=== PATIENT | female | born 1955 | race Caucasian/White ===

== ENCOUNTER 2024-01-16 10:38 | Day surgery (SDC) | payer OTHER, SELFPAY ==
[2024-01-11 08:33] VITALS: BMI 42.8
--- OUTSIDE RECORDS SUMMARY | 2024-01-16 10:52 | XMS_ITS | Patient Health Record ---
Author Organization [facility] Address [address] [place] [phone] Care Team Providers Care Personnel Assistant Name Role Phone [facility] Primary Care Provider [phone] Josette Galdamez Unavailable [phone] Allergies Allergen (clinical drug ingredient) Drug/Non Drug Allergy documented on EMR Reaction Allergy Type Onset Date Status honey (uncoded) Unknown Allergy Acti ve morphine Morphine Sulfate Unknown Drug Allergy Active Results Component Value Reference Range Notes 25OH VITAMIN D Reviewed date:03/24/2023 05:16:54 PM Interpretation: Performing Lab:Testing performed or reported by [facility], a Service of [facility], [address] [place] [address] Arturo Granda MD, Building Guard Deputy Sheriff [facility]# [id number] Notes/Report: 25OH VITAMIN D 59.6 (20-50) NG/ML COMPLETE CBC WITH DIFF Reviewed date:03/24/2023 05:16:54 PM Interpretation: Performing Lab:Testing performed or reported by [facility], a Service of [address] [address] Arturo Granda MD, Building Guard Deputy Sheriff CLIA# [id number] Notes/Report: WBC 8.9 (4.0-11.0) K/MM3 RBC 4.04 (4.20-5.40) M/MM3 HGB 9.8 (11.7-15.5) GM/DL HCT 32.2 (35.7-45.8) % MCV 79.7 (80.0-100.0) FL MCH 24.3 (27.0-34.0) PG MCHC 30.4 (33.0-37.0) g/dL PLT 260 (150-460) K/MM3 RDW-SD 47.5 (<47.0) FL MPV 9.2 (9.4-12.4) FL AUTOMATED NRBC 0.0 ABS. NRBC 0.0 NEUT # 5.7 (1.3-7.0) K/MM3 LYMPH # 2.5 (0.8-3.1) K/MM3 MONO# 0.5 (0.4-0.9) K/MM3 EO # 0.1 (0.0-0.4) K/MM3 BASO # 0.0 (0.0-0.1) K/MM3 ABS. IMM GRAN 0.1 NEUT 64.6 (44-76) % LYMPH 27.6 (15-43) % MONOCYTE 6.1 (4.5-10.5) % EO 0.8 (0-6) % BASO 0.3 (0-2) % IMM GRAN 0.6 COMPREHENSIVE METABOLIC PANE L Reviewed date:03/24/2023 05:16:54 PM Interpretation: Performing Lab:Testing performed or reported by [facility], a Service of [facility], [address] [place] [address] Arturo Granda MD, Building Guard Deputy Sheriff [facility]# [id number] Notes/Report: GLUCOSE 198 (70-99) MG/DL BUN 20 (8-23) MG/DL CREATININE 0.8 (0.5-1.0) MG/DL SODIUM 136 (133-145) MMOL/L POTASSIUM 4.3 (3.6-5.2) MMOL/L CHLORIDE 100 (98-107) MMOL/L BICARBONATE 25 (22-29) MMOL/L ANION GAP 11 (4-17) ALBUMIN 4.7 (3.4-4.8) GM/DL CALCIUM 9.8 (8.6-10.5) MG/DL BILIRUBIN,TOTAL <0.2 (0-1.2) MG/DL TOTAL PROTEIN 7.0 (6.2-8.2) GM/DL AG RATIO 2.0 AST 64 (0-32) U/L ALK PHOS 96 (35-104) U/L ALT 45 (0-33) U/L ESTIMATED GFR CREATININE 79 Creatinine based estimated glomerular filtration (eGFR) in adults is calculated using the National Kidney Foundation recommended 2020 CKD-EPI equation. Estimates GFR from serum creatinine, age and sex. PROBNP Reviewed date:03/24/2023 05:16:54 PM Interpretation: Performing Lab:Testing performed or reported by [facility], a Service of [address] [address] Arturo Granda MD, Building Guard Deputy Sheriff [facility]# [id number] Notes/Report: PRO BNP 155 (1-125) PG/ML COMPLETE URINALYSIS Reviewed date:03/24/2023 05:16:54 PM Interpretation: Performing Lab:Testing performed or reported by [facility], [place] [address] Arturo Granda MD, Building Guard Deputy Sheriff [facility]# [id number] Notes/Report: APPEAR/COLOR COLORLESS CLEAR SP. GRAVITY 1.005 (1.002-1.030) URINE PH 6.5 (5.0-8.0) URINE ALBUMIN NEGATIVE (NEG) URINE GLUCOSE 3+ (NEG) URINE KETONES NEGATIVE (NEG) URINE BILIRUBIN NEGATIVE (NEG) URINE HEMOGLOBIN NEGATIVE (NEG) URINE NITRITE NEGATIVE (NEG) URINE LEUKOCYTE NEGATIVE (NEG) UROBILINOGEN NORMAL (NORM) MG/DL URINE WBCs 3 (0-5) /HPF URINE RBCs <1 (0-3) /HPF BACTERIA SLIGHT (NEG) HPF SQUAMOUS EPITH 1 (0-8) /HPF HYALINE CAST 1 (0-2) LPF URINARY MICROALBUMIN Reviewed date:03/24/2023 05:16:54 PM Interpretation: Performing Lab:Testing performed or reported by [facility], a Service of [address] [address] Arturo Granda MD, Building Guard Deputy Sheriff [facility]# [id number] Notes/Report: MICRO-ALBUMIN 35.0 (<20) MG/L The urine microalbumin test is designed to monitor renal function. When screening for Bence Rice proteinuria, urine electrophoresis is recommended. MALB/CREAT RATIO 269.5 (0-20) MG/GM URINE CREAT FOR MICRO ALBUMIN 12.8 ANTI-HEPATITIS C W/RFLX HCV QNT Reviewed date:03/24/2023 05:16:54 PM Interpretation: Performing Lab:Testing performed or reported by [facility], a Service of [facility], [address] [place] [address] Arturo Granda MD, Building Guard Deputy Sheriff [facility]# [id number] Notes/Report: ANTI-HEPATITIS C NEGATIVE (NEG) Reference range: Negative This test was performed on the [employer]alen Arm[employer] Raiser Lockstitch immunoassay system. IRON & TIBC Reviewed date:06/21/2023 05:25:14 AM Interpretation: Performing Lab:Testing performed or reported by [facility], a Service of [facility], [address] [place] [address] Arturo Granda MD, Building Guard Deputy Sheriff [facility]# [id number] Notes/Report: IRON 32 (30-160) MCG/DL UNSATURATED IRON BINDING CAPAC 497 (110-370) MCG/DL EST T. IRON BIND CAPACITY 529 (140-530) MCG/D L % IRON SATURATION 6 (20-55) % Hemoglobin A1C Reviewed date:03/22/2023 05:47:38 PM Interpretation: Performing Lab: Notes/Report: [facility] Lot: [id number] US Bladder Reviewed date:11/10/2023 05:56:15 AM Interpretation: Performing Lab: Notes/Report: US Bladder REASON: Urinary incontinence without sensory awareness. COMPARISON: CT Abdomen and Pelvis 03/23/2021. FINDINGS: Bladder morphology appears normal. No stone, mass, wall thickening or debris. Prevoid volume: 591.8 cc Postvoid volume: 150.8 cc Partially imaged uterus demonstrates possible endometrial thickening. IMPRESSION: Significant postvoid residual urinary bladder volume of 151 cc. Partially imaged uterus demonstrates possible endometrial thickening. Consider correlation for history of postmenopausal bleeding. Pelvic ultrasound may be obtained for further evaluation if clinically warranted. WSN: [id number] Ordering Physician: [facility] Dictated By: Lorena JADE, Minesh Daily [facility] Screening Digital Reviewed date:04/05/2023 06:57:22 PM Interpretation: Performing Lab: Notes/Report: Original Ordering Provider: COLYB GUZMAN MD [facility] PDF Report Reviewed date:11/22/2023 06:18:55 PM Interpretation: Performing Lab:[facility] [place], [address], [place], Phone - [phone], Director - Marquez Notes/Report: Comp. Metabolic Panel (14)-3 Reviewed date:11/22/2023 06:18:55 PM Interpretation: Performing Lab:[facility], [address] [place] [address], Phone - [phone], Director - MDJodry Notes/Report: Glucose 292 70-99 mg/dL BUN 34 8-27 mg/dL Creatinine 1.04 0.57-1.00 mg/dL eGFR 58 >59 mL/min/1.73 BUN/Creatinine Ratio 33 12-28 Sodium 132 134-144 mmol/L Potassium 5.2 3.5-5.2 mmol/L Chloride 96 96-106 mmol/L Carbon Dioxide, Total 19 20-29 mmol/L Calcium 9.4 8.7-10.3 mg/dL Protein, Total 7.4 6.0-8.5 g/dL Albumin 4.5 3.9-4.9 g/dL Globulin, Total 2.9 1.5-4.5 g/dL A/G Ratio 1.6 1.2-2.2 Bilirubin, Total <0.2 0.0-1.2 mg/dL Alkaline Phosphatase 99 44-121 IU/L AST (SGOT) 29 0-40 IU/L ALT (SGPT) 25 0-32 IU/L B-Type Natriuretic Peptide-1 [id number] Reviewed date:11/22/2023 06:18:54 PM Interpretation: Performing Lab:[facility], [address] [place] [address], Phone - [phone], Director - MDJodry Notes/Report: B-Type Natriuretic Peptide 37.3 0.0-100.0 pg/m L Siemens ADVIA Centaur XP methodology Albumin/Creatinine Ratio,Uri ne-[id number] Reviewed date:11/22/2023 06:18:54 PM Interpretation: Performing Lab:[facility] [place], [address] [facility], Phone - [phone], Director - MDJodry Notes/Report: Creatinine, Urine 22.1 Not Estab. mg/dL Albumin, Urine 6.5 Not Estab. ug/mL Alb/Creat Ratio 29 0-29 mg/g creat Normal: 0 - 29 Moderately increased: 30 - 300 Severely increased: >300 Vitamin D, 21-Hwsutye-[id number] Reviewed date:11/22/2023 06:18:54 PM Interpretation: Performing Lab:[facility], [address] [facility], Phone - [phone], Director - Marquez Notes/Report: Vitamin D, 25-Hydroxy 67.4 30.0-100.0 ng/mL Vitamin D deficiency has been defined by the Anderson of Medicine and an Endocrine Society practice guideline as a level of serum 25-OH vitamin D less than 20 ng/mL (1,2). The Endocrine Society went on to further define vitamin D insufficiency as a level between 21 and 29 ng/mL (2). 1. IOM (Anderson of Medicine). 2010. Dietary reference intakes for calcium and D. [place]: The National Academies Press. 2. Odell MF, Jaz NC, Vaishnavi HOOVER, et al. Evaluation, treatment, and prevention of vitamin D deficiency: an Endocrine Society clinical practice guideline. JCEM. 2010; 96(7):1911-30. CBC With Differential/Platel et-[id number] Reviewed date:11/22/2023 06:18:54 PM Interpretation: Performing Lab:[facility] [place], [address] [facility], [place], Phone - [phone], Director - Marquez Notes/Report: WBC 11.4 3.4-10.8 x10E3/uL RBC 4.07 3.77-5.28 x10E6/uL Hemoglobin 12.0 11.1-15.9 g/dL Hematocrit 36.0 34.0-46.6 % MCV 89 79-97 fL MCH 29.5 26.6-33.0 pg MCHC 33.3 31.5-35.7 g/dL RDW 13.0 11.7-15.4 % Platelets 234 150-450 x10E3/uL Neutrophils 75 Not Estab. % Lymphs 20 Not Estab. % Monocytes 5 Not Estab. % Eos 0 Not Estab. % Basos 0 Not Estab. % Neutrophils (Absolute) 8.4 1.4-7.0 x10E3/uL Lymphs (Absolute) 2.3 0.7-3.1 x10E3/uL Monocytes(Absolute) 0.6 0.1-0.9 x10E3/uL Eos (Absolute) 0.1 0.0-0.4 x10E3/uL Baso (Absolute) 0.0 0.0-0.2 x10E3/uL Immature Granulocytes 0 Not Estab. % Immature Grans (Abs) 0.0 0.0-0.1 x10E3/uL Ferritin-[id number] Reviewed date:11/22/2023 06:18:54 PM Interpretation: Performing Lab:[facility], [address] [place] [address], Phone - [phone], Director - Marquez Notes/Report: Ferritin 140 15-150 ng/mL Urinalysis, Complete-[id number] Reviewed date:11/22/2023 06:18:54 PM Interpretation: Performing Lab:[facility] [place], [address] [place] [address], Phone - [phone], Director - Marquez Notes/Report: Specific Hazard 1.009 1.005-1.030 pH 6.0 5.0-7.5 Urine-Color Yellow Yellow Appearance Clear Clear WBC Esterase Negative Negative Protein Negative Negative/Trace Glucose 1+ Negative Ketones Negative Negative Occult Blood Negative Negative Bilirubin Negative Negative Urobilinogen,Semi-Qn 0.2 0.2-1.0 mg/dL Nitrite, Urine Negative Negative Microscopic Examination See below: Micr oscopic was indicated and was performed. WBC None seen 0 - 5 /hpf RBC 0-2 0 - 2 /hpf Epithelial Cells (non renal) None seen 0 - 10 /hpf Casts None seen None seen /lpf Bacteria None seen None seen/Few Iron and TIBC-[id number] Reviewed date:11/22/2023 06:18:54 PM Interpretation: Performing Lab:[facility], [address] [place] [address], Phone - [phone], Director - Marquez Notes/Report: Iron Bind.Cap.(TIBC) 402 250-450 ug/dL UIBC 340 118-369 ug/dL Iron 62 27-139 ug/dL Iron Saturation 15 15-55 % URINARY MICROALBUMIN Reviewed date:06/21/2023 05:25:14 AM Interpretation: Performing Lab:Testing performed or reported by [facility], a Service of [facility], [address] [place] [address] Arturo Granda MD, Building Guard Deputy Sheriff [facility]# [id number] Notes/Report: MICRO-ALBUMIN 25.0 (<20) MG/L The urine microalbumin test is designed to monitor renal function. When screening for Bence Rice proteinuria, urine electrophoresis is recommended. MALB/CREAT RATIO 100.0 (0-20) MG/GM URINE CREAT FOR MICRO ALBUMIN 25.0 RETICULOCYTE COUNT Reviewed date:06/21/2023 05:25:14 AM Interpretation: Performing Lab:Testing performed or reported by [facility], a Service of [address] [address] Arturo Granda MD, Building Guard Deputy Sheriff CLIA# [id number] Notes/Report: RETIC % 2.3 (0.9-2.1) % RETICULOCYTE COUNT, CORRECTED 1.9 (0.9-2.1) % RETICULOCYTE PRODUCTION INDEX 1.9 (1.0-2.0) % PROBNP Reviewed date:06/22/2023 07:31:27 AM Interpretation: Performing Lab:Testing performed or reported by [facility], a Service of [address] [address] Arturo Granda MD, Building Guard Deputy Sheriff CLIA# [id number] Notes/Report: PRO BNP 117 (1-125) PG/ML HEMOGLOBIN A1C Reviewed date:06/21/2023 05:25:14 AM Interpretation: Performing Lab:Testing performed or reported by [facility], a Service of [address] [address] Arturo Granda MD, Building Guard Deputy Sheriff CLIA# [id number] Notes/Report: HEMOGLOBIN A1C 10.0 (4.0-5.6) % MONITORING: In known diabetic patients, hemoglobin A1c targets should be discussed with health care provider. DIAGNOSTIC USE: The [place] Diabetes Association (ADA) and the World Health Organization (WHO) recommend the use of HbA1c to diagnose diabetes using a threshold of 6.5%. Patients who have an HbA1c between 5.7% and 6.4% are considered at increased risk for developing diabetes in the future. CAUTION: Falsely low HbA1c results may be observed in patients with hemolytic anemia, homozygous forms of abnormal hemoglobin (e.g. SS, CC, SC), , recent blood loss or hemoglobin F greater than 7%. Fructosamine may be used as an alternate test in these cases. REFERENCE: ADA: Standards of Medical Care in Diabetes 2020, The Journal of Clinical and Applied Research and Education Volume 43, Supplement 1 FERRITIN Reviewed date:06/21/2023 05:42:22 AM Interpretation: Performing Lab:Testing performed or reported by [facility], a Service of [facility], [address] [place] [address] Arturo Granda MD, Building Guard Deputy Sheriff [facility]# [id number] Notes/Report: FERRITIN 18 (14-283) NG/ML COMPREHENSIVE METABOLIC PANE L Reviewed date:06/21/2023 05:25:14 AM Interpretation: Performing Lab:Testing performed or reported by [facility], a Service of [address] [address] Arturo Granda MD, Building Guard Deputy Sheriff [place]# [id number] Notes/Report: GLUCOSE 192 (70-99) MG/DL BUN 26 (8-23) MG/DL CREATININE 1.0 (0.5-1.0) MG/DL SODIUM 137 (133-145) MMOL/L POTASSIUM 4.7 (3.6-5.2) MMOL/L CHLORIDE 99 (98-107) MMOL/L BICARBONATE 25 (22-29) MMOL/L ANION GAP 13 (4-17) ALBUMIN 4.7 (3.4-4.8) GM/DL CALCIUM 9.7 (8.6-10.5) MG/DL BILIRUBIN,TOTAL 0.2 (0-1.2) MG/DL TOTAL PROTEIN 7.4 (6.2-8.2) GM/DL AG RATIO 1.7 AST 65 (0-32) U/L ALK PHOS 97 (35-104) U/L ALT 32 (0-33) U/L ESTIMATED GFR CREATININE 63 Creatinine based estimated glomerular filtration (eGFR) in adults is calculated using the National Kidney Foundation recommended 2020 CKD-EPI equation. Estimates GFR from serum creatinine, age and sex. COMPLETE URINALYSIS Reviewed date:06/21/2023 05:25:14 AM Interpretation: Performing Lab:Testing performed or reported by [facility], a Service of [address] [address] Arturo Granda MD, Building Guard Deputy Sheriff [facility]# [id number] Notes/Report: APPEAR/COLOR LIGHT YELLOW CLEAR SP. GRAVITY 1.007 (1.002-1.030) URINE PH 6.0 (5.0-8.0) URINE ALBUMIN NEGATIVE (NEG) URINE GLUCOSE TRACE (NEG) URINE KETONES NEGATIVE (NEG) URINE BILIRUBIN NEGATIVE (NEG) URINE HEMOGLOBIN NEGATIVE (NEG) URINE NITRITE NEGATIVE (NEG) URINE LEUKOCYTE 1+ (NEG) UROBILINOGEN NORMAL (NORM) MG/DL URINE WBCs 7 (0-5) /HPF URINE RBCs 1 (0-3) /HPF BACTERIA SLIGHT (NEG) HPF MUCUS SLIGHT SQUAMOUS EPITH 6 (0-8) /HPF HYALINE CAST 1 (0-2) LPF COMPLETE CBC WITH DIFF Reviewed date:06/21/2023 05:25:14 AM Interpretation: Performing Lab:Testing performed or reported by [facility], a Service of [facility], [address] [place] [address] Arturo Granda MD, Building Guard Deputy Sheriff [facility]# [id number] Notes/Report: WBC 12.0 (4.0-11.0) K/MM3 RBC 4.55 (4.20-5.40) M/MM3 HGB 10.7 (11.7-15.5) GM/DL HCT 36.3 (35.7-45.8) % MCV 79.8 (80.0-100.0) FL MCH 23.5 (27.0-34.0) PG MCHC 29.5 (33.0-37.0) g/dL PLT 289 (150-460) K/MM3 RDW-SD 46.6 (<47.0) FL MPV 9.4 (9.4-12.4) FL AUTOMATED NRBC 0.0 ABS. NRBC 0.0 NEUT # 8.6 (1.3-7.0) K/MM3 LYMPH # 2.6 (0.8-3.1) K/MM3 MONO# 0.6 (0.4-0.9) K/MM3 EO # 0.1 (0.0-0.4) K/MM3 BASO # 0.0 (0.0-0.1) K/MM3 ABS. IMM GRAN 0.1 NEUT 72.0 (44-76) % LYMPH 21.4 (15-43) % MONOCYTE 5.3 (4.5-10.5) % EO 0.5 (0-6) % BASO 0.3 (0-2) % IMM GRAN 0.5 25OH VITAMIN D Reviewed date:06/21/2023 05:42:22 AM Interpretation: Performing Lab:Testing performed or reported by [facility], a Service of [facility], [address] [place] [address] Arturo Granda MD, Building Guard Deputy Sheriff [facility]# [id number] Notes/Report: 25OH VITAMIN D 62.1 (20-50) NG/ML LIPID PANEL W REFLEX TO DLDL Reviewed date:03/24/2023 05:16:54 PM Interpretation: Performing Lab:Testing performed or reported by [facility], a Service of [address] [address] Arturo Granda MD, Building Guard Deputy Sheriff [facility]# [id number] Notes/Report: CHOLESTEROL, TOTAL 135 (<200) MG/DL TRIGLYCERIDES 246 (<150) MG/DL HDL CHOL 35 (>39) MG/DL LDL CHOLESTEROL, CALCULATED 51 (0-130) MG/DL NON HDL CHOLESTEROL (CALC) 100 (<160) MG/DL CHOLESTEROL/HDL RATIO (CALC) 3.9 (<5.0) Reference range for children have not been well established. Adult reference range is equal or less than 5 LIPID PANEL W REFLEX TO DLDL Reviewed date:06/21/2023 05:25:14 AM Interpretation: Performing Lab:Testing performed or reported by [facility], a Service of [address] [address] Arturo Granda MD, Building Guard Deputy Sheriff [facility]# [id number] Notes/Report: CHOLESTEROL, TOTAL 137 (<200) MG/DL TRIGLYCERIDES 222 (<150) MG/DL HDL CHOL 40 (>39) MG/DL LDL CHOLESTEROL, CALCULATED 53 (0-130) MG/DL NON HDL CHOLESTEROL (CALC) 97 (<160) MG/DL CHOLESTEROL/HDL RATIO (CALC) 3.4 (<5.0) Reference range for children have not been well established. Adult reference range is equal or less than 5 Hemoglobin A1C Reviewed date:11/22/2023 06:18:55 PM Interpretation: Performing Lab: Notes/Report: [facility] Lot: [id number] Reticulocyte Count-[id number] Reviewed date:11/22/2023 06:18:54 PM Interpretation: Performing Lab:[facility] [place], [address], [place], Phone - [phone], Director - Marquez Notes/Report: Reticulocyte Count 3.5 0.6-2.6 % LP+Non-HDL Cholesterol-[id number] 5 Reviewed date:11/22/2023 06:18:55 PM Interpretation: Performing Lab:[facility] [place], [address], [place], Phone - [phone], Director - Marquez Notes/Report: Cholesterol, Total 123 100-199 mg/dL Triglycerides 184 0-149 mg/dL HDL Cholesterol 38 >39 mg/dL VLDL Cholesterol Chris 31 5-40 mg/dL LDL Chol Calc (NIH) 54 0-99 mg/dL Non-HDL Cholesterol 85 0-129 mg/dL Reason For Referral Diagnosis 1 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) Referral Organization [facility] Referring Provider First Name Colby Referring Provider Last Name Sunny Referring Provider Speciality Internal M edicine Referred Provider Alo Wheeler Referred Provider Specialty Gastroentero logy General Notes Nara LOPEZ 08:59:22 AM > faxedJESSICA Brooke R 05/10/2023 02:33:01 PM > 07/07/2022 1:30 pm aaron rolyforrest booked with elbert Referral Priority Routine Referral Appointment Date 07/07/2023 Reason faxed Diagnosis 1 Type 2 diabetes wolfgang itus with diabetic polyneuropathy (E11.42) Referral Organization [facility] Referring Provider First Name Colby Referring Provider Last Name Sunny Referring Provider Speciality Internal M edicine Referred Provider Christina, Nutrition Referred Provider Specialty Nutrition General Notes France LOPEZ 09/02 05:19:55 PM >faxed Referral Priority Routine Medications Medication SIG (Take, Route, Frequency, Duration) Notes Start Date End Date Status Lisinopril 40 MG Take 1 tablet by mouth once daily for 90 Active Clobetasol Propionate 0.05 % APPLY A THIN LAYER TOPICALLY TO AFFECTED AREA(S) TWICE DAILY for 14 Active Gabapentin 300 MG TAKE 1 CAPSULE BY MOUTH TWICE DAILY AND 3 AT BEDTIME for 60 Active HumuLIN R U-500 KwikPen 500 UNIT/ML as directed Subcutaneous Active SSD 1 % APPLY CREAM TOPICALLY TO AFFECTED AREA(S) TWICE DAILY for 30 Active EQ Aspirin Adult Low Dose 81 MG Take 1 tablet by mouth once daily for 90 Active Fluticasone Propionate 50 MCG/ACT Use 2 spray(s) in each nostril once daily for 90 Active Nitroglycerin 0.4 MG DISSOLVE ONE TABLET UNDER THE TONGUE EVERY 5 MINUTES NEEDED FOR CHEST PAIN. DO NOT EXCEED A TOTAL OF 3 DOSES IN 15 MINUTES for 30 Active Rosuvastatin Calcium 40 MG Take 1 tablet by mouth once daily for 90 Active Isosorbide Mononitrate ER 30 MG 1 tablet in the morning Orally Once a day for 90 days 08/08/2015 Active Omeprazole 40 MG Take 1 capsule by mouth once daily for 90 Active Carvedilol 12.5 MG Take 1 tablet by mouth twice daily for 90 Active cloNIDine HCl 0.2 MG TAKE 1 TABLET BY MOUTH THREE TIMES DAILY for 90 Active HYDROcodone-Acetamino phen 5-325 MG 1 tablet as needed Oral every 6 hrs for 21 days Partial Fill upon Patient Request 12/26/2023 01/16/2024 Active Kerendia 10 MG 1 tablet Orally Once a day for 30 days 11/21/2023 05/18/2024 Active Tylenol 325 MG 1 tablet as needed Orally every 4 hrs Active Zolpidem Tartrate 10 MG 1 tablet at bedtime as needed Orally Once a day for 14 days 12/30/2023 Active Ferrous Sulfate 325 (65 Fe) MG 1 tablet Orally Once a Day for 30 days Active Omeprazole 20 MG 2 tablets Orally Once a day for 90 days 08/08/2015 Active Clopidogrel Bisulfate 75 MG Take 1 tablet by mouth once daily for 90 Active Bumetanide 2 MG TAKE 1 TO 2 TABLETS BY MOUTH ONCE DAILY for 60 Active Vitamin D (Ergocalciferol) 1.25 MG (25469 UT) Take 1 capsule by mouth once a week for 84 Active Immunizations Vaccine Route Administration Date Status Comme nts *Influenza, High Dose Seasonal, Quadrivatent Unknown 06/20/2023 Refused patient refused *Influenza-Medicare-A S IM Intramuscular 04/26/2019 Administered *Prevnar 13 Unknown 03/03/2021 Refused *Prevnar 13 Unknown 03/15/2022 Refused *PREVNAR 20 Unknown 03/22/2023 Others Influenza Unknown 04/23/2016 Refused [id number] Afluria-Single IM Intramuscular 04/19/2018 Administered Influenza-Afluria (IIV4) IM Intramuscular 06/21/2017 Administered Pneumococcal polysaccharide PPV23 Unknown 10/01/2005 Administered Td (adult) preservative free Unknown 12/30/2010 Administered Td (adult) preservative free Unknown 03/03/2021 Refused Td (adult) preservative free Unknown 03/15/2022 Refused Social History Tobacco Use: Social History Observation Description Date Details (start date - stop date) Never Smoker NA - NA Tobacco Use/Smoking Question Answer Notes Are you a nonsmoker Alcohol Screen (Audit-C) Question Answer Notes Did you have a drink containing alcohol in the p ast year? 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) Active confirmed Problem Diabetic renal disease (032412240) Type 2 diabetes mellitus with diabetic chronic kidney disease (E11.22) Active confirmed Problem Polyneuropathy due to type 2 diabetes mellitus (267926755) Type 2 diabetes mellitus with diabetic polyneuropathy (E11.42) Active confirmed Problem Vitamin D deficiency (71020226) Vitamin D deficiency, unspecified (E55.9) Active confirmed Problem Morbid obesity (disorder) (624017930) Morbid (severe) obesity due to excess calories (E66.01) Active confirmed Problem Mixed hyperlipidemia (379620801) Mixed hyperlipidemia (E78.2) Active confirmed Problem Carpal tunnel syndrome (02134363) Carpal tunnel syndrome, unspecified upper limb (G56.00) Active confirmed Problem Carpal tunnel syndrome (88333326) Carpal tunnel syndrome, right upper limb (G56.01) Active confirmed Problem Carpal tunnel syndrome (02069158) Carpal tunnel syndrome, left upper limb (G56.02) Active confirmed Problem Polyneuropathy (81184461) Polyneuropathy in diseases classified elsewhere (G63) Active confirmed Problem Age-related nuclear cataract of right eye (911965111095976) Age-related nuclear cataract, right eye (H25.11) Active confirmed Problem Age-related nuclear cataract of left eye (213525171209688) Age-related nuclear cataract, left eye (H25.12) Active confirmed Problem Benign paroxysmal positional vertigo (536585629) Benign paroxysmal vertigo, unspecified ear (H81.10) Active confirmed Problem Hypertensive heart AND chronic kidney disease with congestive heart failure (70830397259797) Hypertensive heart and chronic kidney disease with heart failure and stage 1 through stage 4 chronic kidney disease, or unspecified chronic kidney disease (I13.0) Active confirmed Problem Angina (005684815) 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) Active confirmed Problem Sick sinus syndrome (15181155) Sick sinus syndrome (I49.5) Active confirmed Problem Chronic diastolic heart failure (248303399) Chronic diastolic (congestive) heart failure (I50.32) Active confirmed Problem Intermittent claudication of bilateral lower limbs co-occurrent and due to atherosclerosis (58506515157252088 ) Atherosclerosis of [place] arteries of extremities with intermittent claudication, bilateral legs (I70.213) Active confirmed Problem Chronic rhinitis (33661541) Chronic rhinitis (J31.0) Active confirmed Problem Gastroparesis (949266319) Gastroparesis (K31.84) Active confirmed Problem Sebaceous cyst (266750878) Sebaceous cyst (L72.3) Active confirmed Problem Right side sciatica (456381904459936) Sciatica, right side (M54.31) Active confirmed Problem Occipital neuralgia (28958342) Occipital neuralgia (M54.81) Active confirmed Problem Incontinence without sensory awareness (121916123) Incontinence without sensory awareness (N39.42) Active confirmed Problem Functional urinary incontinence (874871900) Functional urinary incontinence (R39.81) Active confirmed Problem Nonspecific tuberculin test reaction (403464890) Nonspecific reaction to tuberculin skin test without active tuberculosis (R76.11) Active confirmed Problem Long-term current use of insulin (348184770) [facility] (current) use of insulin (Z79.4) Active confirmed Problem History of polyp of colon (107613954) Personal history of colonic polyps (Z86.010) Active confirmed Problem Cardiac pacemaker in situ (057676194) Presence of cardiac pacemaker (Z95.0) Active confirmed Problem Obstructive sleep apnea syndrome (disorder) (18001158) Obstructive sleep apnea (adult) (pediatric) (G47.33) Active confirmed Problem Chronic kidney disease stage 3A (disorder) (164106773) Chronic kidney disease, stage 3a (N18.31) Active confirmed Problem Body mass index 40+ - severely obese (339871889) Body mass index [BMI]40.0-44.9, adult (Z68.41) Active confirmed Problem Atherosclerotic heart disease of [place] coronary artery without angina pectoris (217867767729250) Atherosclerotic heart disease of [place] coronary artery without angina pectoris (I25.10) Inactive confirmed Vital Signs Heart Rate 83 /min 11/21/2023 Temperature 96.4 degrees Fahrenheit 11/21/2023 Oximetry 96 % 11/21/2023 Blood pressure diastolic 90 mm Hg 11/21/2023 Height 66 in 11/21/2023 Blood pressure systolic 150 mm Hg 11/21/2023 Weight 255.4 lbs 11/21/2023 BMI 41.22 kg/m2 11/21/2023 Encounters Encounter Location Date Provider Diagnosis Colby Guzman MD [address] [id number] 03/22/2023 Colby Guzman Encounter for genera l adult medical examination without abnormal findings Z00.00 ; Hypertensive heart and chronic kidney disease with heart failure and stage 1 through stage 4 chronic kidney disease, or unspecified chronic kidney disease I13.0 ; Type 2 diabetes mellitus with diabetic polyneuropathy E11.42 ; terminal clerk (current) use of insulin Z79.4 ; Chronic kidney disease, stage 3a N18.31 ; Atherosclerotic heart disease of [place] coronary artery without angina pectoris I25.10 ; Chronic diastolic (congestive) heart failure I50.32 ; Sick sinus syndrome I49.5 ; Presence of cardiac pacemaker Z95.0 ; Body mass index [BMI]40.0-44.9, adult Z68.41 ; Morbid (severe) obesity due to excess calories E66.01 ; Mixed hyperlipidemia E78.2 ; Gastroparesis K31.84 ; Vitamin D deficiency, unspecified E55.9 ; Encounter for screening for malignant neoplasm of colon Z12.11 ; Encounter for screening mammogram for malignant neoplasm of breast Z12.31 ; Encounter for screening for osteoporosis Z13.820 ; Encounter for screening for cardiovascular disorders Z13.6 ; Encounter for immunization Z23 ; Encounter for antibody response examination Z01.84 and Encounter for screening for other viral diseases Z11.59 Colby Guzman MD [address] [id number] 06/20/2023 Colby Guzman Hypertensive heart a nd chronic kidney disease with heart failure and stage 1 through stage 4 chronic kidney disease, or unspecified chronic kidney disease I13.0 ; Type 2 diabetes mellitus with diabetic polyneuropathy E11.42 ; terminal clerk (current) use of insulin Z79.4 ; Chronic kidney disease, stage 3a N18.31 ; Atherosclerotic heart disease of [place] coronary artery without angina pectoris I25.10 ; Chronic diastolic (congestive) heart failure I50.32 ; Sick sinus syndrome I49.5 ; Presence of cardiac pacemaker Z95.0 ; Body mass index [BMI]40.0-44.9, adult Z68.41 ; Morbid (severe) obesity due to excess calories E66.01 ; Mixed hyperlipidemia E78.2 ; Gastroparesis K31.84 ; 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 ; Vitamin D deficiency, unspecified E55.9 ; Encounter for immunization Z23 and Immunization not carried out because of patient refusal Z28.21 Colby Guzman MD [address] [id number] 09/28/2023 Colby Guzman Type 2 diabetes mellitus with diabetic polyneuropathy E11.42 ; terminal clerk (current) use of insulin Z79.4 and Incontinence without sensory awareness N39.42 Colby Guzman MD [address] [id number] 10/06/2023 Colby Guzman MD [address] [id number] 10/10/2023 Colby Guzman Hypertensive heart a nd chronic kidney disease with heart failure and stage 1 through stage 4 chronic kidney disease, or unspecified chronic kidney disease I13.0 ; Type 2 diabetes mellitus with diabetic polyneuropathy E11.42 ; [facility] (current) use of insulin Z79.4 ; Chronic kidney disease, stage 3a N18.31 ; Atherosclerotic heart disease of [place] coronary artery without angina pectoris I25.10 ; Chronic diastolic (congestive) heart failure I50.32 ; Sick sinus syndrome I49.5 ; Presence of cardiac pacemaker Z95.0 ; Body mass index [BMI]40.0-44.9, adult Z68.41 ; Morbid (severe) obesity due to excess calories E66.01 ; Mixed hyperlipidemia E78.2 ; Gastroparesis K31.84 ; 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 ; Vitamin D deficiency, unspecified E55.9 and Age-related nuclear cataract, right eye H25.11 Colby Guzman MD [address] [id number] 10/25/2023 Colby Guzman Type 2 diabetes mellitus with diabetic polyneuropathy E11.42 ; [facility] (current) use of insulin Z79.4 and Incontinence without sensory awareness N39.42 Colby Guzman MD [address] [id number] 11/03/2023 Colby Guzman Hypertensive heart a nd chronic kidney disease with heart failure and stage 1 through stage 4 chronic kidney disease, or unspecified chronic kidney disease I13.0 ; [facility] (current) use of insulin Z79.4 ; Chronic kidney disease, stage 3a N18.31 ; Atherosclerotic heart disease of [place] coronary artery without angina pectoris I25.10 ; Chronic diastolic (congestive) heart failure I50.32 ; Sick sinus syndrome I49.5 ; Presence of cardiac pacemaker Z95.0 ; Body mass index [BMI]40.0-44.9, adult Z68.41 ; Morbid (severe) obesity due to excess calories E66.01 ; Mixed hyperlipidemia E78.2 ; Gastroparesis K31.84 ; 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 ; Vitamin D deficiency, unspecified E55.9 ; Polyneuropathy in diseases classified elsewhere G63 and Type 2 diabetes mellitus with diabetic chronic kidney disease E11.22 Colby Guzman MD [address] [id number] 11/21/2023 Colby Guzman Hypertensive heart a nd chronic kidney disease with heart failure and stage 1 through stage 4 chronic kidney disease, or unspecified chronic kidney disease I13.0 ; Type 2 diabetes mellitus with diabetic chronic kidney disease E11.22 ; terminal clerk (current) use of insulin Z79.4 ; Chronic kidney disease, stage 3a N18.31 ; Chronic diastolic (congestive) heart failure I50.32 ; Sick sinus syndrome I49.5 ; Presence of cardiac pacemaker Z95.0 ; Atherosclerotic heart disease of [place] coronary artery without angina pectoris I25.10 ; Body mass index [BMI]40.0-44.9, adult Z68.41 ; Morbid (severe) obesity due to excess calories E66.01 ; Polyneuropathy in diseases classified elsewhere G63 ; Mixed hyperlipidemia E78.2 ; Gastroparesis K31.84 ; 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 and Vitamin D deficiency, unspecified E55.9 Colby Guzman MD [address] [facility] [address] [place] [address] [id number] 02/07/2023 oClby Guzman MD [address] [facility] [address] [place] [address] [id number] 02/07/2023 Colby Guzman MD [address] [facility] [address] [address] [place] [address] [id number] 02/08/2023 Colby Guzman Functional urinary incontinence R39.81 Colby Guzman MD [address] [facility] [address] [place], [place] [id number] 02/08/2023 Colby Guzman MD [address] [place] [address] [id number] 03/08/2023 Colby Guzman MD [address] [place] [address] [id number] 03/14/2023 Colby Guzman MD [address] [place] [address] [id number] 03/14/2023 Colby Guzman MD [address] [facility] [address] [address] [place] [address] [id number] 03/24/2023 Colby Guzman Anemia, unspecified D64.9 and 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 Colby Guzman MD [address] [facility] [address] [place] [address] [id number] 04/05/2023 Colby Guzman MD [address] [place] [address] [id number] 04/05/2023 Colby Guzman MD [address] [place] [address] [id number] 04/06/2023 Colby Guzman MD [address] [facility] [address] [place] [address] [id number] 04/08/2023 Colby Guzman MD PC [address] [place] [address] [id number] 04/13/2023 Colby Guzman MD [address] [place] [address] [id number] 04/19/2023 Colby Guzman MD [address] [facility] [address] [place] [address] [id number] 04/25/2023 Colby Guzman MD [address] [place] [address] [id number] 05/10/2023 Colby Guzman MD PC [address] [place], [place] [id number] 06/01/2023 Colby Guzman MD PC [address] [place], [place] [id number] 06/07/2023 Colby Guzman MD PC [address] [place], [place] [id number] 06/07/2023 Colby Guzman MD PC [address] [place], [place] [id number] 06/20/2023 Colby Guzman MD PC [address] [place], [place] [id number] 07/11/2023 Colby Guzman MD PC [address] [place], [place] [id number] 07/12/2023 Colby Guzman MD PC [address] [place], [place] [id number] 07/12/2023 Colby Guzman MD PC [address] [place], [place] [id number] 08/01/2023 Colby Guzman MD PC [address] [place], [place] [id number] 08/09/2023 Colby Guzman MD PC [address] [place], [place] [id number] 08/19/2023 Josette Guzman MD PC [address] [place], [place] [id number] 09/06/2023 Colby Guzman MD PC [address] [place], [place] [id number] 09/07/2023 Colby Guzman MD PC [address] [place], [place] [id number] 10/03/2023 Colby Guzman MD PC [address] [place], [place] [id number] 10/04/2023 Colby Guzman MD PC [address] [place], [place] [id number] 10/04/2023 Colby Guzman MD PC [address] [place], [place] [id number] 10/05/2023 Colby Guzman Type 2 diabetes mellitus with diabetic polyneuropathy E11.42 Colby Guzman MD PC [address] [place], [place] [id number] 10/06/2023 Colby Guzman Type 2 diabetes mellitus with diabetic polyneuropathy E11.42 Colby Guzman MD [address] [id number] 10/28/2023 Colby Guzman MD [address] [id number] 11/04/2023 Colby Guzman MD [address] [id number] 11/08/2023 Colby Guzman MD [address] [id number] 11/23/2023 Colby Guzman MD [address] [id number] 12/02/2023 Colby Guzman Iron deficiency anem ia secondary to blood loss (chronic) D50.0 Colby Guzman MD [address] [id number] 12/26/2023 Colby Guzman MD [address] [id number] 12/30/2023 Josette Galdamez Assessments Encounter Date Diagnosis (ICD Code) Assessment Notes Treatment Notes Treatment Clinical Notes 03/22/2023 Encounter for general adult medical examination without abnormal findings (ICD-10 - Z00.00) General healthcare up-to-date. Check routine labs. Healthcare proxy and MOLST form package given for review and completion 06/20/2023 Hypertensive heart and chronic kidney disease with heart failure and stage 1 through stage 4 chronic kidney disease, or unspecified chronic kidney disease (ICD-10 - I13.0) Stable at present. Continue current therapy 11/03/2023 Hypertensive heart and chronic kidney disease with heart failure and stage 1 through stage 4 chronic kidney disease, or unspecified chronic kidney disease (ICD-10 - I13.0) Stable at present. Continue current therapy 11/03/2023 [facility] (current) use of insulin (ICD-10 - Z79.4) Continues on insulin therapy as managed by endocrine 09/28/2023 Type 2 diabetes mellitus with diabetic polyneuropathy (ICD-10 - E11.42) Her A1C continues to be elevated at 9.4%. Recommend contiunous glucose monitor. Placed G7 in office. She is agreeable to see a dietitian as well. Follow up in 2 weeks. 09/28/2023 terminal clerk (current) use of insulin (ICD-10 - Z79.4) Continues on insulin therapy.Will review G7 data in 2 weeks may need to adjust insulin based on data. 10/25/2023 Type 2 diabetes mellitus with diabetic polyneuropathy (ICD-10 - E11.42) Not ideal. Her preliminary report was reviewed. She is in range 27% of the time and still has significant hyperglycemia. Her graph shows an increase with meals. She is either not giving herself enough insulin or not giving herself insulin at all. Recommend bringing her insulin and book which she records her sugars and how much insulin she is giving herself. Follow up in one week. 10/25/2023 terminal clerk (current) use of insulin (ICD-10 - Z79.4) Continues on insulin therapy. 10/10/2023 Hypertensive heart and chronic kidney disease with heart failure and stage 1 through stage 4 chronic kidney disease, or unspecified chronic kidney disease (ICD-10 - I13.0) Fair control at present. She is not exercising. Encourage exercise which she says she is unable to do because of her impaired walking which is due to her diabetic neuropathy. Recommend better control of her diabetes to help control other issues and continue current medical therapy 10/10/2023 Type 2 diabetes mellitus with diabetic polyneuropathy (ICD-10 - E11.42) Not ideal. A G7 was placed and her preliminary report was reviewed. She is in range less than 50% of the time and still has significant hyperglycemia. She does not like to use the sensor and because it alarms all the time. She is reminded that the alarms are an indication that she has hyperglycemia and needs better control of her high sugars. Recommend that she use additional insulin based on guidance from her production bow maker. The current Dexcom report was faxed to her production bow maker as well. 10/05/2023 Type 2 diabetes mellitus with diabetic polyneuropathy (ICD-10 - E11.42) 11/21/2023 Hypertensive heart and chronic kidney disease with heart failure and stage 1 through stage 4 chronic kidney disease, or unspecified chronic kidney disease (ICD-10 - I13.0) Not ideal today. She would benefit from use of finerenone not only for renal protection from diabetes but also this may indirectly help her hypertension. Recommend starting medical therapy and rechecking labs 1 weeks after she starts medical therapy 11/21/2023 Type 2 diabetes mellitus with diabetic chronic kidney disease (ICD-10 - E11.22) She has follow-up pending with endocrine tomorrow. She says she is unable to use a continuous glucose monitor. She knocks it off after 3 days. She is not able to keep it on for its full life span. 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 She has not gotten her US yet. She may have missed a call from [facility] to schedule this. Given the phone number to reach [facility] to schedule. 09/28/2023 Incontinence without sensory awareness (ICD-10 - N39.42) she says she has bee n having incontinence since her D and C procedure in 2019. Plan for ultrasound for post void residual. 11/03/2023 Chronic kidney disease, stage 3a (ICD-10 - N18.31) Her GFR had improved into the 60s to 70s. Continue control comorbidity and reevaluate status 06/20/2023 Type 2 diabetes mellitus with diabetic polyneuropathy (ICD-10 - E11.42) Not ideal. She has s een endocrinology and is trying to work on getting a continuous glucose monitor. Dexcom G7 was applied and her son has installed the application on his phone. She will follow-up with endocrine and hopefully this Dexcom data will be of benefit to help facilitate control of her diabetes 03/22/2023 Hypertensive heart and chronic kidney disease with heart failure and stage 1 through stage 4 chronic kidney disease, or unspecified chronic kidney disease (ICD-10 - I13.0) Fair control at present. Continue current medical therapy and encourage exercise which she is not doing. 03/22/2023 Type 2 diabetes mellitus with diabetic polyneuropathy (ICD-10 - E11.42) Not ideal. Her A1c continues to increase. Recommend follow-up with endocrine for better diabetes control. Many of her symptoms such as headache dizziness numb fingers and hands are all related complications of diabetes [id number]. None of these will get better until her diabetes is better managed. 06/20/2023 terminal clerk (current) use of insulin (ICD-10 - Z79.4) Continues on insulin therapy as managed by endocrine 11/03/2023 Atherosclerotic heart disease of [place] coronary artery without angina pectoris (ICD-10 - I25.10) Stable without any progressive symptoms of note. 10/10/2023 Chronic kidney disease, stage 3a (ICD-10 - N18.31) Stable estimated GFR in the 60s to 70s. Continue control of comorbidity especially diabetes 11/21/2023 Chronic kidney disease, stage 3a (ICD-10 - N18.31) Her GFR is in the mi d 60s to 70s. Recommend continue control of comorbidity of hypertension diabetes. She would also benefit from use of finerenone to help reduce risk of progressive renal insufficiency 11/21/2023 Chronic diastolic (congestive) heart failure (ICD-10 - I50.32) Symptomatically stab le. Recheck labsSymptomatically stable. 10/10/2023 Atherosclerotic heart disease of [place] coronary artery without angina pectoris (ICD-10 - I25.10) Symptomatically stab le but need to control comorbidities of diabetes and hypertension and hyperlipidemia. 11/03/2023 Chronic diastolic (congestive) heart failure (ICD-10 - I50.32) Symptomatically stab le. Recheck labs 06/20/2023 Chronic kidney disease, stage 3a (ICD-10 - N18.31) Her GFR had improved into the 60s to 70s. Continue control comorbidity and reevaluate status 03/22/2023 [facility] (current) use of insulin (ICD-10 - Z79.4) Continues on insulin therapy as managed by endocrine 03/22/2023 Chronic kidney disease, stage 3a (ICD-10 - N18.31) Her GFR had been in the 50s. Slightly better into the 60s now. Recheck status to verify adequate control and improvement 06/20/2023 Atherosclerotic heart disease of [place] coronary artery without angina pectoris (ICD-10 - I25.10) Stable without any progressive symptoms of note. 11/03/2023 Sick sinus syndrome (ICD-10 - I49.5) Stable with pacemake r placement 10/10/2023 Chronic diastolic (congestive) heart failure (ICD-10 - I50.32) Symptomatically stab le. Recheck labs 11/21/2023 Sick sinus syndrome (ICD-10 - I49.5) Stable with pacemake r placement 11/21/2023 Presence of cardiac pacemaker (ICD-10 - Z95.0) Stable and unchanged 10/10/2023 Sick sinus syndrome (ICD-10 - I49.5) Stable with pacemake r placement 11/03/2023 Presence of cardiac pacemaker (ICD-10 - Z95.0) Stable and unchanged 06/20/2023 Chronic diastolic (congestive) heart failure (ICD-10 - I50.32) Symptomatically stab le. Recheck labs 03/22/2023 Atherosclerotic heart disease of [place] coronary artery without angina pectoris (ICD-10 - I25.10) Stable without any progressive symptoms of note. 03/22/2023 Chronic diastolic (congestive) heart failure (ICD-10 - I50.32) Symptomatically stab le. Recheck labs 11/03/2023 Body mass index [BMI]40.0-44.9, adult (ICD-10 - Z68.41) Encourage diet and exercise 06/20/2023 Sick sinus syndrome (ICD-10 - I49.5) Stable with pacemake r placement 10/10/2023 Presence of cardiac pacemaker (ICD-10 - Z95.0) Stable and unchanged 11/21/2023 Atherosclerotic heart disease of [place] coronary artery without angina pectoris (ICD-10 - I25.10) She reports that she is doing okay without any symptoms of note. Continue control comorbidity of hypertension diabetes and hyperlipidemia 11/21/2023 Body mass index [BMI]40.0-44.9, adult (ICD-10 - Z68.41) Encourage diet and exercise 10/10/2023 Body mass index [BMI]40.0-44.9, adult (ICD-10 - Z68.41) Encourage diet and exercise 06/20/2023 Presence of cardiac pacemaker (ICD-10 - Z95.0) Stable and unchanged 11/03/2023 Morbid (severe) obesity due to excess calories (ICD-10 - E66.01) Encourage diet and exercise and weight loss 03/22/2023 Sick sinus syndrome (ICD-10 - I49.5) Stable with pacemake r placement 03/22/2023 Presence of cardiac pacemaker (ICD-10 - Z95.0) Stable and unchanged 11/03/2023 Mixed hyperlipidemia (ICD-10 - E78.2) Check level to verif y adequate control 06/20/2023 Body mass index [BMI]40.0-44.9, adult (ICD-10 - Z68.41) Encourage diet and exercise 10/10/2023 Morbid (severe) obesity due to excess calories (ICD-10 - E66.01) Encourage diet and exercise and weight loss 11/21/2023 Morbid (severe) obesity due to excess calories (ICD-10 - E66.01) Encourage diet and exercise and weight loss 11/21/2023 Polyneuropathy in diseases classified elsewhere (ICD-10 - G63) She still has a gait imbalance most likely due to her neuropathy. Recommend assistive device such as a cane 10/10/2023 Mixed hyperlipidemia (ICD-10 - E78.2) Check level to verif y adequate control 06/20/2023 Morbid (severe) obesity due to excess calories (ICD-10 - E66.01) Encourage diet and exercise and weight loss 11/03/2023 Gastroparesis (ICD-10 - K31.84) Still has ongoing issues. Continue to modify diet. Hopefully control of diabetes will also facilitate this. 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 There may be a small bowel chronic blood loss. Recommend iron therapy and recheck status 06/20/2023 Mixed hyperlipidemia (ICD-10 - E78.2) Check level to verif y adequate control 10/10/2023 Gastroparesis (ICD-10 - K31.84) Seems to be stable a t this point in time. Need to control major comorbidity of diabetes 11/21/2023 Mixed hyperlipidemia (ICD-10 - E78.2) Recheck level to sindy estrellita adequate control of comorbidity. 11/21/2023 Gastroparesis (ICD-10 - K31.84) She still has occasional discomfort. 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 Recheck status to verify that there is no persistent iron deficiency 06/20/2023 Gastroparesis (ICD-10 - K31.84) Still has ongoing issues. Continue to modify diet. Hopefully control of diabetes will also facilitate this. Hopefully use of CGM will facilitate control of diabetes 11/03/2023 Vitamin D deficiency, unspecified (ICD-10 - E55.9) Can check level as adjunct evaluation for fall risk and possibly dementia 03/22/2023 Mixed hyperlipidemia (ICD-10 - E78.2) Check level to verif y adequate control 03/22/2023 Gastroparesis (ICD-10 - K31.84) Continues to have ongoing issues. Currently stable. Recommend frequent small meals. 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 There may be a small bowel chronic blood loss. 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 Recheck status to verify that there is no further loss of blood identified 11/21/2023 Vitamin D deficiency, unspecified (ICD-10 - E55.9) Check level to verif y that there is no insufficiency 10/10/2023 Age-related nuclear cataract, right eye (ICD-10 - H25.11) She says she needs cataract surgery but given her uncontrolled diabetes there may be an increased risk of complications. Recommend she follow-up with ophthalmology and if they feel that the situation is stable enough for her to proceed then she can consider proceeding with surgical treatment of this. However given her significant hyperglycemia she remains at risk for other complications such as retinal hemorrhage. 11/03/2023 Type 2 diabetes mellitus with diabetic chronic kidney disease (ICD-10 - E11.22) 06/20/2023 Vitamin D deficiency, unspecified (ICD-10 - E55.9) Can check level as adjunct evaluation for fall risk and possibly dementia 03/22/2023 Vitamin D deficiency, unspecified (ICD-10 - E55.9) Can check level as adjunct evaluation for fall risk and possibly dementia 03/22/2023 Encounter for screening for malignant neoplasm of colon (ICD-10 - Z12.11) Up-to-date on colon cancer screening 06/20/2023 Encounter for immunization (ICD-10 - Z23) 06/20/2023 Immunization not carried out because of patient refusal (ICD-10 - Z28.21) 03/22/2023 Encounter for screening mammogram for malignant neoplasm of breast (ICD-10 - Z12.31) Up-to-date on breast cancer screening 03/22/2023 Encounter for screening for osteoporosis (ICD-10 - Z13.820) Up-to-date on osteoporosis screening 03/22/2023 Encounter for screening for cardiovascular disorders (ICD-10 - Z13.6) Blood pressure stabl e. Can check for comorbidity of hyperlipidemia and hyperglycemia and use this data to further assess risk 03/22/2023 Encounter for immunization (ICD-10 - Z23) Recommend Prevnar 20 but there is an insurance bridge issue in the office today and she is unable to get that through the office so she says she will try to get this at the pharmacy. 03/22/2023 Encounter for antibody response examination (ICD-10 - Z01.84) Titers have been checked in the past and is immune to rubeola 03/22/2023 Encounter for screening for other viral diseases (ICD-10 - Z11.59) Can screen for hepatitis C as is the general recommendation 06/20/2023 Other This note was created with voice dictation recognition software and may contain errors of grammar and syntax. Also labs were reviewed with patient. 03/22/2023 Other This note was created with voice dictation recognition software and may contain errors of grammar and syntax. Also labs were reviewed with patient. 08/19/2023 Other last filled, per masspat: [id number]- Acetamin 5-325 Mg56 tabs for 14 days 10/10/2023 Other This note was created with voice dictation recognition software and may contain errors of grammar and syntax. Also labs were reviewed with patient. 11/03/2023 Other Not ideal. She has seen endocrinology and is trying to work on getting a continuous glucose monitor. Dexcom G7 was applied and her son has installed the application on his phone. She will follow-up with endocrine and hopefully this Dexcom data will be of benefit to help facilitate control of her diabetes 11/21/2023 Other This note was created with voice dictation recognition software and may contain errors of grammar and syntax. Also labs were reviewed with patient. 12/30/2023 Other last filled per masspat: 12/02/2023 Plan Of Treatment Pending Test Test Name Order Date Ultrasound : Carotid Doppler Bilateral 0 03/13/2018 Ultrasound : W/Post Void Bladder 024 Exercise Stress Nuclear Test 03/03/2021 25OH VITAMIN D 03/15/2022 25OH VITAMIN D 03/03/2021 25OH VITAMIN D 07/19/2022 25OH VITAMIN D 12/02/2021 COMPLETE CBC WITH DIFF 12/02/2021 COMPLETE CBC WITH DIFF 07/19/2022 COMPLETE CBC WITH DIFF 03/24/2023 COMPLETE CBC WITH DIFF 03/03/2021 COMPLETE CBC WITH DIFF 03/15/2022 COMPLETE URINALYSIS 03/15/2022 COMPLETE URINALYSIS 03/03/2021 COMPLETE URINALYSIS 07/19/2022 COMPLETE URINALYSIS 12/02/2021 COMPREHENSIVE METABOLIC PANEL 07/19/2022 COMPREHENSIVE METABOLIC PANEL 03/03/2021 COMPREHENSIVE METABOLIC PANEL 03/15/2022 COMPREHENSIVE METABOLIC PANEL 12/02/2021 FERRITIN 03/24/2023 FERRITIN 12/02/2021 FOLIC ACID 12/02/2021 HEMOGLOBIN A1C 07/19/2022 IMMUNOFIXATION SERUM 12/02/2021 IRON & TIBC 12/02/2021 IRON & TIBC 03/24/2023 LIPID PANEL W REFLEX TO DLDL 07/19/2022 LIPID PANEL W REFLEX TO DLDL 12/02/2021 LIPID PANEL W REFLEX TO DLDL 03/15/2022 LIPID PANEL W REFLEX TO DLDL 03/03/2021 PROBNP 03/03/2021 PROBNP 07/19/2022 PROBNP 12/02/2021 RETICULOCYTE COUNT 12/02/2021 RETICULOCYTE COUNT 03/24/2023 URINARY MICROALBUMIN 07/19/2022 URINARY MICROALBUMIN 12/02/2021 URINARY MICROALBUMIN 03/03/2021 VITAMIN B12 12/02/2021 FOLATE 01/11/2019 FREESTYLE ESTELITA PRO 06/21/2017 CELIAC DISEASE COMPREHENSIVE 03/24/2023 Toñito Dexa Axial Skeleton 03/03/2021 CR Upper GI Small Bowel Series 2019 Novel Coronavirus, UMA 06/02/2021 2019 Novel Coronavirus, UMA 03/03/2021 Hemoglobin A1C 10/10/2023 Iron and TIBC-[id number] 10/10/2023 Urinalysis, Complete-[id number] 10/10/2023 Ferritin-[id number] 10/10/2023 CBC With Differential/Platelet-[id number] Reticulocyte Count-[id number] 10/10/2023 Vitamin D, 18-Jptuexi-[id number] 10/10/2023 Albumin/Creatinine Ratio,Urine-[id number] B-Type Natriuretic Peptide-[id number] 2023 Comp. Metabolic Panel [id number] 2023 LP+Non-HDL Cholesterol-[id number] 10/10/2023 Future Test Test Name Order Date Comp. Metabolic Panel [id number] 2023 Next Appt Details Provider Name:Colby Sunny , 03/06/2024 01:45:00 PM, [address] [place] [address], [phone], Provider Name:Colby Guzman , 03/27/2024 03:00:00 PM, [address] [place] [address], [place], [place], [phone], Insurance Providers Payer Name Payer Address Payer Phone Subscriber Number Group Number Insured Name Patient Relationship to Insured Coverage Start Date Coverage End Date [facility] [id number] [address] [address] [place] [phone] [id number] Princess Chen Self - patient is the insured Medical (General) History Medical History History ICD Code Diabetic retinopathy-laser treatment Type 2 diabetes mellitus with diabetic p olyneuropathy E11.42 Type 2 diabetes mellitus with diabetic n ephropathy E11.21 Chronic diastolic (congestive) heart barber lure I50.32 Atherosclerotic heart diseas e of [place] coronary artery without angina pectoris I25.10 Presence of cardiac pacemaker Z95.0 Peripheral vascular disease, unspecified I73.9 Vitamin D deficiency, unspecified E55.9 Nonspecific reaction to tuberculin skin test without active tuberculosis R76.11 Tuberculosis of lung A15.0 Vitreous hemorrhage, unspecified eye H43 .10 Retinal hemorrhage, unspecified eye H35. 60 Personal history of colonic polyps Z86.0 10 Hypertensive heart and chron ic kidney disease with heart failure and stage 1 through stage 4 chronic kidney disease, or unspecified chronic kidney disease I13.0 Sciatica, right side M54.31 Surgical History Surgery Date(Month/Year) PCI and MELONIE of OM 08/10/2011 MELONIE of the ostial LCx/OM-1 05/22/2012 Cardiac Pacemaker Hysteroscopy and Fractional D and C 07/05 020 Hospitalization History Reason Date(Month/Year)
--- OUTSIDE RECORDS SUMMARY | 2024-01-16 10:52 | XMS_ITS | Continuity of Care Document ---
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 Role Phone Sunny JADE, Colby Primary Care Physician [phone] [facility] [id number] Date(s): 01/03/24 - 01/10/24 [facility] [address] [place] [id number] Attending Physician: Cherelle JADE, Jerman Anne Referring Physician: Eric Cassidy MD Allergies, Adverse Reactions, Alerts Substance Reaction Severity Status morphine Nausea, GI upset Active N Ice Honey/Lemon Honeybee Honeybee Active Medications acetaminophen-hydrocodone 500 mg-5 mg oral capsule 1 capsule, By Mouth, Every 4 hours, 0 Refills, Maintenance Start Date: 02/10/11 Status: Ordered Ambien 10 mg oral tablet 1 tablet = 10 mg, By Mouth, Daily at bedtime, PRN for sleep, 0 Refills, Maintenance, 01/06/15 7:32:04, Tablet Start Date: 01/06/15 Status: Ordered amitriptyline 25 mg oral tablet 1 tablet = 25 mg, By Mouth, Daily at bedtime, 0 Refills, Maintenance Start Date: 08/10/11 Status: Ordered aspirin 81 mg oral tablet 1 tablet = 81 mg, By Mouth, Daily, 0 Refills, Maintenance Start Date: 02/10/11 Status: Ordered bumetanide 2 mg oral tablet 1 tablet = 2 mg, By Mouth, Daily, # 30 tablet, 0 Refills, Maintenance, 01/06/15 7:22:20, Tablet Start Date: 01/06/15 Status: Ordered carvedilol 6.25 mg oral tablet 6.25 mg, 1, tablet, By Mouth, 2 times a day, # 60 tablet, Refills 0, Maintenance, 05/19/18 6:58:23 EST Start Date: 05/19/18 Status: Ordered clonidine 0.2 mg oral tablet 1 tablet = 0.2 mg, By Mouth, 2 times a day, # 180 tablet, 4 Refills, Maintenance, Tablet Start Date: 05/23/12 Status: Ordered Flonase 50 mcg/inh nasal spray Daily, 0 Refills, Maintenance, 03/31/21 18:57:00 EDT, Partial fill upon patient request if the prescription is for a schedule II opioid drug. Start Date: 03/31/21 Status: Ordered HumuLIN R KwikPen (Concentrated) human recombinant 500 units/mL subcutaneous solution INJECT 150 UNITS SUBCUTANEOUSLY IN THE MORNING 150 UNITS AT LUNCH AND 160 UNITS AT DINNER Start Date: 04/04/21 Status: Ordered Iron 100 Plus oral tablet 1 tablet, By Mouth, Daily, 0 Refills, Maintenance, 01/03/24 13:38:00 EDT, Partial fill upon patientrequest if the prescription is for a schedule II opioid drug. Start Date: 01/03/24 Status: Ordered IRON 65MG TAB IRON 65MG TAB, TAKE 1 TABLET BY MOUTH ONCE DAILY Start Date: 01/03/24 Status: Ordered isosorbide mononitrate 30 mg oral tablet, extended release 30 mg, 1, tablet, By Mouth, Daily in AM, Refills 0, Maintenance, 05/19/18 6:59:50 EST Start Date: 05/19/18 Status: Ordered lisinopril 40 mg oral tablet 1 tablet = 40 mg, By Mouth, Daily, 0 Refills, Maintenance, 02/10/11 8:30:12 Start Date: 02/10/11 Status: Ordered Neurontin 600 mg oral tablet 1 tablet = 600 mg, By Mouth, 3 times a day, # 90 tablet, 3 Refills, Maintenance, 03/27/19 13:58:00 EDT, Tablet Start Date: 03/27/19 Stop Date: 07/25/19 Status: Ordered Nitrostat 0.4 mg sublingual tablet 1 tablet = 0.4 mg, Sublingual, Every 5 minutes, PRN for chest pain, # 100 tablet, 0 Refills, Maintenance, 12/04/14 8:55:19, Tablet Start Date: 12/04/14 Status: Ordered omeprazole 20 mg oral delayed release tablet 1 tablet = 20 mg, By Mouth, Daily, 0 Refills, Maintenance, 05/19/18 7:00:11 EST Start Date: 05/19/18 Status: Ordered Plavix 75 mg oral tablet 1 tablet = 75 mg, By Mouth, Daily, # 90 tablet, 4 Refills, Maintenance, Tablet Start Date: 05/23/12 Status: Ordered rosuvastatin 40 mg oral tablet TAKE 1 TABLET BY MOUTH ONCE DAILY Start Date: 01/03/24 Status: Ordered Vitamin D 83434 iu oral capsule 1 capsule = 50,000 International_Units, By Mouth, Every week, 0 Refills, Maintenance, 02/10/11 8:28:40 EDT Start Date: 02/10/11 Status: Ordered Problem List Condition Confirmation Course Effective Dates Status Health St atus Informant Back pain Confirmed Active Constipation Confirmed Active Coronary artery disease (CAD) Confirmed Active Diabetes mellitus Confirmed Active Diabetic neuropathy Confirmed Active Diabetic retinopathy Confirmed Active Headache Confirmed Active Positive PPD 34 mm Confirmed Active Neck swelling Confirmed Active 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 09/27/16 Active Paronychia Confirmed Active Severe obesity Confirmed Active Sick sinus syndrome Confirmed Active Stented coronary artery Confirmed Active Type 2 diabetes with complication Confirmed Active Procedures Procedure Date Related Diagnosis Body Site Status x 2; Hernia repair; Completed Vital Signs Most recent to oldest [Reference Range]: 1 2 Height 165 cm (01/03/24 1:39 PM) 165 cm (01/03/24 1:30 PM) Weight 116.4 kg (01/03/24 1:30 PM) Oxygen Saturation [94-100 %] 100 % (01/03/24 1:30 PM) Pulse Rate [55-90 bpm] 73 bpm (01/03/24 1:30 PM) Body Mass Index [18.5-24.99 kg/m2] 42.75 kg/m2 *>HHI* (01/03/24 1:30 PM) Blood Pressure [90-138/55-84 mm Hg] 154/ 52mm Hg *H* (01/03/24 1:39 PM) 164/46mm Hg *H* (01/03/24 1:30 PM) Respiratory Rate [16-30 br/min] 16 br/mi n (01/03/24 1:30 PM) Mode of Delivery (Oxygen) Room air (01/03/24 1:30 PM) Blood pressure sites Arm, left (01/03/24 1:39 PM) Arm, right (01/03/24 1:30 PM) Dry Weight 116.4 kg (01/03/24 1:30 PM) Social History Social History Type Response Smoking Status Never smoker; Tobacc o user in household: No entered on: 12/04/14 Sex Patient Care team information Care Team Personnel Name: Gunjan Jiménez Position: [facility] Office Staff Member Role: Lifetime Consulting Physician Name: Colby Correa MD Position: [facility] Physician - Primary Care Member Role: PCP Address: Address: [address] [place] [address] [address] [place] [address]- Care Team Related Persons Name: MYLES BYRD JR Address: home [address] [facility] [address] [place] [address] Name: MYLES BYRD SR Address: home [address] [address]
[2024-01-16 11:22] VITALS: BP 177/60; PULSE 82; RESP 16; TEMP 37.1; O2SAT 96
[2024-01-16] MEDS: Tetracaine HCl/PF 0.5% Oph Sol 4 ML DROPS 1 DROP EYE-LEFT (11:24)
[2024-01-16] MEDS: Cyclopentolate 1 % Ophth Sol 2 ML DRPBTL 1 DROP EYE-LEFT ×3 (11:25→11:29)
[2024-01-16] MEDS: Ketorolac Tromethamine 0.5% Op 10 ML DROPS 1 DROP EYE-LEFT ×3 (11:26→11:30)
[2024-01-16] MEDS: Tropicamide 1 % Ophth Sol 3 ML BTL 1 DROP EYE-LEFT ×3 (11:26→11:29)
[2024-01-16] MEDS: Phenylephrine HCL 2.5% Oph SoL 2 ML BOTTLE 1 DROP EYE-LEFT ×3 (11:27→11:31)
--- NOTE | 2024-01-16 11:30 | HO.ANESPROP2 ---
Documented by User: Kait Gee NP 01/13/24 12:17 HPI - Anesthesia Eval Consult details Narrative: 68yo F for Left Cataract Extraction IOL Insertion No previous cataract on record Pacer in situ for SSS Per clearance note: CIED?-?Last interrogation was 04.29.2023 with normal device functioning and battery life of 2yrs.?No contraindications.?We recommend continuous ECG monitoring, have magnet available, position the current return pad near the operation site and away from the device, keep cautery tool away from pulse generator and leads, use short, intermittent, low energy cautery bursts, use bipolar electrocautery system if possible and have emergent pacing/defibrillator available.? [facility] Past Medical History Medical History (Updated 01/16/24 @ 11:16 by Jackie Solares RN) Cervical cancer Bilateral breast cancer Pacemaker RAUL on CPAP Sick sinus syndrome Diabetic retinopathy Diabetic neuropathy Diabetes Back pain Hx of cardiac pacemaker CAD (coronary artery disease) Surgical History Surgical History (Updated 01/16/24 @ 10:52 by Jackie Solares RN) H/O thyroidectomy Hx of section Hx of hernia repair Hx of heart artery stent Social History Social History Patient Tobacco Use Status: Never used Tobacco Use of substances other than those prescribed or required for medical reasons: No Advance Directives: No Advance Directives Information Provided: Yes Meds Allergies Allergy/AdvReac Type Severity Reaction Status Date / Time morphine Allergy Intermediate Gastrointestinal Verified 01/11/24 08:22 Upset/nausea Home Medications ?Medication ?Instructions ?Recorded ?Confirmed ?Last Taken ?Type amitriptyline 25 mg tablet 25 mg PO BEDTIME 01/11/24 01/11/24 Unknown History aspirin 81 mg tablet,delayed 81 mg PO DAILY 01/11/24 01/11/24 Unknown History release bumetanide 2 mg tablet 2 - 4 mg PO DAILY 01/11/24 01/11/24 Unknown History carvedilol 6.25 mg tablet 6.25 mg PO BID 01/11/24 01/11/24 Unknown History clonidine HCl 0.2 mg tablet 0.2 mg PO BID 01/11/24 01/11/24 Unknown History clopidogrel 75 mg tablet 75 mg PO DAILY 01/11/24 01/11/24 Unknown History ergocalciferol (vitamin D2) 1,250 1,250 mcg PO QWEEK 01/11/24 01/11/24 Unknown History mcg (50,000 unit) capsule (Vitamin D2) ferrous sulfate 325 mg (65 mg 325 mg PO DAILY 01/11/24 01/11/24 Unknown History iron) tablet gabapentin 600 mg tablet 600 mg PO TID 01/11/24 01/11/24 Unknown History hydrocodone 5 mg-acetaminophen 325 1 tab PO Q6H PRN Pain 01/11/24 01/11/24 Unknown History mg tablet insulin regular hum U-500 conc 500 150 unit subcut DAILY 01/11/24 01/11/24 Unknown History unit/mL(3 mL) subcut pen (Humulin R U-500 (Conc) Insulin Kwikpen) isosorbide mononitrate 30 mg 30 mg PO DAILY 01/11/24 01/11/24 Unknown History tablet,extended release 24 hr lisinopril 40 mg tablet 40 mg PO DAILY 01/11/24 01/11/24 Unknown History nitroglycerin 0.4 mg sublingual 0.4 mg sublingual Q5M PRN Chest 01/11/24 01/11/24 Unknown History tablet (Nitrostat) Pain omeprazole 20 mg capsule,delayed 40 mg PO DAILY 01/11/24 01/11/24 Unknown History release rosuvastatin 40 mg tablet 40 mg PO DAILY 01/11/24 01/11/24 Unknown History zolpidem 10 mg tablet 10 mg PO BEDTIME PRN Insomnia 01/11/24 01/11/24 Unknown History Exam Height,Weight and Vital Signs: Height 5 ft 4.96 in Weight 116.4 kg Assessment and Plan Assessment Anesthesia Assessment: Chart Reviewed Documented by User: Jelena Heck DO 01/16/24 11:34 [facility] Past Medical History Medical History (Updated 01/16/24 @ 11:16 by Jackie Solares RN) Cervical cancer Bilateral breast cancer Pacemaker RAUL on CPAP Sick sinus syndrome Diabetic retinopathy Diabetic neuropathy Diabetes Back pain Hx of cardiac pacemaker CAD (coronary artery disease) Family History Family history of problems with anesthesia: No Surgical History Surgical History (Updated 01/16/24 @ 10:52 by Jackie Solares RN) H/O thyroidectomy Hx of section Hx of hernia repair Hx of heart artery stent History of Problems with Anesthesia: No Social History Social History Patient Tobacco Use Status: Never used Tobacco Use of substances other than those prescribed or required for medical reasons: No Advance Directives: No Advance Directives Information Provided: Yes Meds Allergies Allergy/AdvReac Type Severity Reaction Status Date / Time morphine Allergy Intermediate Gastrointestinal Verified 01/11/24 08:22 Upset/nausea Home Medications ?Medication ?Instructions ?Recorded ?Confirmed ?Last Taken ?Type amitriptyline 25 mg tablet 25 mg PO BEDTIME 01/11/24 01/11/24 Unknown History aspirin 81 mg tablet,delayed 81 mg PO DAILY 01/11/24 01/11/24 Unknown History release bumetanide 2 mg tablet 2 - 4 mg PO DAILY 01/11/24 01/11/24 Unknown History carvedilol 6.25 mg tablet 6.25 mg PO BID 01/11/24 01/11/24 Unknown History clonidine HCl 0.2 mg tablet 0.2 mg PO BID 01/11/24 01/11/24 Unknown History clopidogrel 75 mg tablet 75 mg PO DAILY 01/11/24 01/11/24 Unknown History ergocalciferol (vitamin D2) 1,250 1,250 mcg PO QWEEK 01/11/24 01/11/24 Unknown History mcg (50,000 unit) capsule (Vitamin D2) ferrous sulfate 325 mg (65 mg 325 mg PO DAILY 01/11/24 01/11/24 Unknown History iron) tablet gabapentin 600 mg tablet 600 mg PO TID 01/11/24 01/11/24 Unknown History hydrocodone 5 mg-acetaminophen 325 1 tab PO Q6H PRN Pain 01/11/24 01/11/24 Unknown History mg tablet insulin regular hum U-500 conc 500 150 unit subcut DAILY 01/11/24 01/11/24 Unknown History unit/mL(3 mL) subcut pen (Humulin R U-500 (Conc) Insulin Kwikpen) isosorbide mononitrate 30 mg 30 mg PO DAILY 01/11/24 01/11/24 Unknown History tablet,extended release 24 hr lisinopril 40 mg tablet 40 mg PO DAILY 01/11/24 01/11/24 Unknown History nitroglycerin 0.4 mg sublingual 0.4 mg sublingual Q5M PRN Chest 01/11/24 01/11/24 Unknown History tablet (Nitrostat) Pain omeprazole 20 mg capsule,delayed 40 mg PO DAILY 01/11/24 01/11/24 Unknown History release rosuvastatin 40 mg tablet 40 mg PO DAILY 01/11/24 01/11/24 Unknown History zolpidem 10 mg tablet 10 mg PO BEDTIME PRN Insomnia 01/11/24 01/11/24 Unknown History Exam Exam Date and Time: January 16, 2024 1130 Height,Weight and Vital Signs: Height 5 ft 4.96 in Weight 116.4 kg Vital Signs Temperature 98.7 F 01/16/24 11:22 Pulse Rate 82 01/16/24 11:22 Respiratory Rate 16 01/16/24 11:22 Blood Pressure 177/60 H 01/16/24 11:22 Pulse Oximetry 96 01/16/24 11:22 Oxygen Delivery Method Room Air 01/16/24 11:22 Temperature 98.7 F 01/16/24 11:22 Pulse Rate 82 01/16/24 11:22 Respiratory Rate 16 01/16/24 11:22 Blood Pressure 177/60 H 01/16/24 11:22 Pulse Oximetry 96 01/16/24 11:22 Oxygen Delivery Method Room Air 01/16/24 11:22 Airway Mallampati Class: III TM Dist: >3cm Neck ROM: Full Denture: Upper and Lower Heart: S1S2 Lungs: CTAB Assessment and Plan Assessment Anesthesia Assessment: Anesthesia Plan Discussed and Chart Reviewed Final Anesthetic Review Family History of Problems with Anesthesia: No History of Problems with Anesthesia: No NPO: Yes ASA Class: III Final Preanesthetic Review: No Changes in Pt Med Stat, Meds/Allgs Chart Reviewed, Consent Obtained/Reviewed and Anes Risks/Benef Reviewed Patient Risk: High Procedure Risk: Low Anesthetic Plan Anesthetic Plan: MAC: and Agree w/ Assess. and Plan Disposition: Standard PACU
[2024-01-16] MEDS: Lactated Ringers 500 ML 50 ML IV (11:36)
[2024-01-16 11:41] LABS: Glucose, Whole Blood 229 mg/dL (60-115)
[2024-01-16 12:48] VITALS: BP 162/59; PULSE 82; RESP 16; TEMP 36.6; O2SAT 96
--- NOTE | 2024-01-16 12:49 | PC.NURSE ---
24hr update documented on paper in OR.
--- NOTE | 2024-01-16 15:28 | MHC.SHP ---
Pre-Procedural Eval Section A - 24 Hr Update-Section A only Date of Service: 01/16/24 The patient is an INPATIENT: No Changes since office visit: No Cold of Flu in the past 2 weeks, No New Medical Problems, No Changes in Medication and No Patient answered all questions The patient has been examined within 24 hours of the surgical procedure. The History & Physical has been completed within 30 days and I have reviewed it.: Yes Section B - Complete if H&P > 30 days Chief Complaint: Age-related nuclear cataract, left eye Allergies: Allergies Allergy/AdvReac Type Severity Reaction Status Date / Time morphine Allergy Intermediate Gastrointestinal Verified 01/11/24 08:22 Upset/nausea Plan Diagnosis/Plan: Unchanged I have reviewed the history and physical and performed a pertinent physical examination on my patient. No changes have occurred unless specified. Time Spent With Patient Time: Total time managing care of this patient today ____ minutes.
--- NOTE | 2024-01-16 15:29 | HO.PNOPHT ---
Ophthalmology Procedure Procedure Date of Service: 01/16/24 Ophthalmology Viscoelastic: Healon Duet Dual Pack Pro Ophthalmology Lenses: IOL Acrysof MP - [id number] (21) Procedure Notes: PREOPERATIVE DIAGNOSIS: Decreased visual acuity left eye secondary to cataract POSTOPERATIVE DIAGNOSIS: Same PROCEDURE: Left cataract extraction with intraocular lens insertion SURGEON: Eric Cassidy M.D. ANESTHESIA: Topical/MAC ESTIMATED BLOOD LOSS: None COMPLICATIONS: None After obtaining informed consent, the patient was brought to the operation room suite and placed in the supine position. After adequate sedation per anesthesia, topical drops of Tetracaine were given to the left eye. The eye was then prepped and draped in the usual sterile fashion. The operating room microscope was then positioned over the operative eye and a lid speculum placed. A paracentesis was created. Viscoelastic was then instilled into the anterior chamber. A three plane incision was then created temporally, utilizing a 2.85 mm keratome. Capsulotomy forceps were then utilized to create a circular tear capsulotomy. Hydrodissection and hydrodelineation were carried out until adequate mobilization of the nucleus occurred. Phacoemulsification was then utilized to remove the dense central nucleus followed by removal of the cortical material utilizing the automated aspiration irrigation unit. Viscoat elastic was instilled into the posterior capsular bag followed by placement of a posterior chamber intraocular lens without difficulty. The residual Viscoat elastic was then removed utilizing the automated IA machine. The wound was check and found to be watertight. The patient tolerated the procedure well and the lid speculum was removed. Intracameral injection of Vigamox 0.1 mL followed by a subtenon injection of Kenalog-40 0.2 mL were administered. The patient will be seen in the a.m.
== END 2024-01-16 12:51 | disposition home or self-care (01) ==
LOC: HO.SSS 10:38
PROVIDERS: PCP Internal Medicine; Visit Provider Ophthalmology
PROC: (CPT 66985; principal; 2024-01-16 10:00)
DX: H25.12 Age-related nuclear cataract, left eye (principal); H52.4 Presbyopia; E10.3553 Type 1 diabetes mellitus with stable proliferative diabetic retinopathy, bilateral; H18.413 Arcus senilis, bilateral; I10 Essential (primary) hypertension; E78.00 Pure hypercholesterolemia, unspecified; I25.10 Atherosclerotic heart disease of native coronary artery without angina pectoris; Z95.5 Presence of coronary angioplasty implant and graft; Z95.0 Presence of cardiac pacemaker; G47.33 Obstructive sleep apnea (adult) (pediatric); Z79.82 Long term (current) use of aspirin; Z79.4 Long term (current) use of insulin; Z79.899 Other long term (current) drug therapy; Z88.5 Allergy status to narcotic agent
CPT/HCPCS: 66984; 82947; J2250; J3010; J3301; V2630

== ENCOUNTER 2024-01-30 08:26 | Day surgery (SDC) | payer OTHER, SELFPAY ==
[2024-01-11 08:39] VITALS: BMI 42.8
--- NOTE | 2024-01-26 13:45 | HO.ANESPROP2 ---
Documented by User: Kait Gee NP 01/26/24 13:46 HPI - Anesthesia Eval Consult details Narrative: 68yo F for Right Cataract Extraction IOL Insertion Left eye 01/16/24: Fent 50, Midaz 1 Pacer in situ for SSS Per clearance note: CIED?-?Last interrogation was 04.29.2023 with normal device functioning and battery life of 2yrs.?No contraindications.?We recommend continuous ECG monitoring, have magnet available, position the current return pad near the operation site and away from the device, keep cautery tool away from pulse generator and leads, use short, intermittent, low energy cautery bursts, use bipolar electrocautery system if possible and have emergent pacing/defibrillator available.? PMFSH Past Medical History Medical History Cervical cancer Bilateral breast cancer Pacemaker RAUL on CPAP Sick sinus syndrome Diabetic retinopathy Diabetic neuropathy Diabetes Back pain Hx of cardiac pacemaker CAD (coronary artery disease) Family History Family history of problems with anesthesia: No Surgical History Surgical History H/O thyroidectomy Hx of section Hx of hernia repair Hx of heart artery stent History of Problems with Anesthesia: No Social History Social History Patient Tobacco Use Status: Never used Tobacco Use of substances other than those prescribed or required for medical reasons: No Advance Directives Information Provided: Yes Meds Allergies Allergy/AdvReac Type Severity Reaction Status Date / Time morphine Allergy Intermediate Gastrointestinal Verified 01/11/24 08:22 Upset/nausea Home Medications ?Medication ?Instructions ?Recorded ?Confirmed ?Last Taken ?Type amitriptyline 25 mg tablet 25 mg PO BEDTIME 01/11/24 01/11/24 Unknown History aspirin 81 mg tablet,delayed 81 mg PO DAILY 01/11/24 01/11/24 Unknown History release bumetanide 2 mg tablet 2 - 4 mg PO DAILY 01/11/24 01/11/24 Unknown History carvedilol 6.25 mg tablet 6.25 mg PO BID 01/11/24 01/11/24 Unknown History clonidine HCl 0.2 mg tablet 0.2 mg PO BID 01/11/24 01/11/24 Unknown History clopidogrel 75 mg tablet 75 mg PO DAILY 01/11/24 01/11/24 Unknown History ergocalciferol (vitamin D2) 1,250 1,250 mcg PO QWEEK 01/11/24 01/11/24 Unknown History mcg (50,000 unit) capsule (Vitamin D2) ferrous sulfate 325 mg (65 mg 325 mg PO DAILY 01/11/24 01/11/24 Unknown History iron) tablet gabapentin 600 mg tablet 600 mg PO TID 01/11/24 01/11/24 Unknown History hydrocodone 5 mg-acetaminophen 325 1 tab PO Q6H PRN Pain 01/11/24 01/11/24 Unknown History mg tablet insulin regular hum U-500 conc 500 150 unit subcut DAILY 01/11/24 01/11/24 Unknown History unit/mL(3 mL) subcut pen (Humulin R U-500 (Conc) Insulin Kwikpen) isosorbide mononitrate 30 mg 30 mg PO DAILY 01/11/24 01/11/24 Unknown History tablet,extended release 24 hr lisinopril 40 mg tablet 40 mg PO DAILY 01/11/24 01/11/24 Unknown History nitroglycerin 0.4 mg sublingual 0.4 mg sublingual Q5M PRN Chest 01/11/24 01/11/24 Unknown History tablet (Nitrostat) Pain omeprazole 20 mg capsule,delayed 40 mg PO DAILY 01/11/24 01/11/24 Unknown History release rosuvastatin 40 mg tablet 40 mg PO DAILY 01/11/24 01/11/24 Unknown History zolpidem 10 mg tablet 10 mg PO BEDTIME PRN Insomnia 01/11/24 01/11/24 Unknown History Exam Height,Weight and Vital Signs: Height 5 ft 4.96 in Weight 116.4 kg Assessment and Plan Assessment Anesthesia Assessment: Chart Reviewed Final Anesthetic Review Family History of Problems with Anesthesia: No History of Problems with Anesthesia: No Documented by User: Irish Johnson MD 01/30/24 10:07 [facility] Past Medical History Medical History Cervical cancer Bilateral breast cancer Pacemaker RAUL on CPAP Sick sinus syndrome Diabetic retinopathy Diabetic neuropathy Diabetes Back pain Hx of cardiac pacemaker CAD (coronary artery disease) Surgical History Surgical History H/O thyroidectomy Hx of section Hx of hernia repair Hx of heart artery stent Social History Social History Patient Tobacco Use Status: Never used Tobacco Use of substances other than those prescribed or required for medical reasons: No Advance Directives Information Provided: Yes Meds Allergies Allergy/AdvReac Type Severity Reaction Status Date / Time morphine Allergy Intermediate Gastrointestinal Verified 01/11/24 08:22 Upset/nausea Home Medications ?Medication ?Instructions ?Recorded ?Confirmed ?Last Taken ?Type amitriptyline 25 mg tablet 25 mg PO BEDTIME 01/11/24 01/11/24 Unknown History aspirin 81 mg tablet,delayed 81 mg PO DAILY 01/11/24 01/11/24 Unknown History release bumetanide 2 mg tablet 2 - 4 mg PO DAILY 01/11/24 01/11/24 Unknown History carvedilol 6.25 mg tablet 6.25 mg PO BID 01/11/24 01/11/24 Unknown History clonidine HCl 0.2 mg tablet 0.2 mg PO BID 01/11/24 01/11/24 Unknown History clopidogrel 75 mg tablet 75 mg PO DAILY 01/11/24 01/11/24 Unknown History ergocalciferol (vitamin D2) 1,250 1,250 mcg PO QWEEK 01/11/24 01/11/24 Unknown History mcg (50,000 unit) capsule (Vitamin D2) ferrous sulfate 325 mg (65 mg 325 mg PO DAILY 01/11/24 01/11/24 Unknown History iron) tablet gabapentin 600 mg tablet 600 mg PO TID 01/11/24 01/11/24 Unknown History hydrocodone 5 mg-acetaminophen 325 1 tab PO Q6H PRN Pain 01/11/24 01/11/24 Unknown History mg tablet insulin regular hum U-500 conc 500 150 unit subcut DAILY 01/11/24 01/11/24 Unknown History unit/mL(3 mL) subcut pen (Humulin R U-500 (Conc) Insulin Kwikpen) isosorbide mononitrate 30 mg 30 mg PO DAILY 01/11/24 01/11/24 Unknown History tablet,extended release 24 hr lisinopril 40 mg tablet 40 mg PO DAILY 01/11/24 01/11/24 Unknown History nitroglycerin 0.4 mg sublingual 0.4 mg sublingual Q5M PRN Chest 01/11/24 01/11/24 Unknown History tablet (Nitrostat) Pain omeprazole 20 mg capsule,delayed 40 mg PO DAILY 01/11/24 01/11/24 Unknown History release rosuvastatin 40 mg tablet 40 mg PO DAILY 01/11/24 01/11/24 Unknown History zolpidem 10 mg tablet 10 mg PO BEDTIME PRN Insomnia 01/11/24 01/11/24 Unknown History Exam Airway Mallampati Class: II TM Dist: >3cm Neck ROM: Full Heart: rrr Lungs: cta Assessment and Plan Assessment Anesthesia Assessment: Anesthesia Plan Discussed Final Anesthetic Review NPO: Yes ASA Class: III Final Preanesthetic Review: No Changes in Pt Med Stat, Meds/Allgs Chart Reviewed, Consent Obtained/Reviewed and Anes Risks/Benef Reviewed Patient Risk: Intermediate Procedure Risk: Low Anesthetic Plan Anesthetic Plan: MAC: Disposition: Standard PACU
--- OUTSIDE RECORDS SUMMARY | 2024-01-30 08:28 | XMS_ITS ---
Author Organization [facility] Address [address] [phone] Care Team Providers Care Account Consultant Name Role Phone [facility] Primary Care Provider [phone] Josette Galdamez Unavailable [phone] Allergies Allergen (clinical drug ingredient) Drug/Non Drug Allergy documented on EMR Reaction Allergy Type Onset Date Status honey (uncoded) Unknown Allergy Acti ve morphine Morphine Sulfate Unknown Drug Allergy Active REASON FOR VISIT refill Medications Medication SIG (Take, Route, Frequency, Duration) Notes Start Date End Date Status Clobetasol Propionate 0.05 % APPLY A THIN LAYER TOPICALLY TO AFFECTED AREA(S) TWICE DAILY for 14 Activ e Zolpidem Tartrate 10 MG 1 tablet at bedt dariana as needed Orally Once a day for 14 days 12/30/2023 Active Omeprazole 20 MG 2 tablets Orally Onc e a day for 90 days 08/08/2015 Active Encounters Encounter Location Date Provider Diagnosis [facility] [address] [place] [phone] 12/30/2023 Josette Galdamez Assessments Encounter Date Diagnosis (ICD Code) Assessment Notes Treatment Notes Treatment Clinical Notes 12/30/2023 Other last filled per masspat: 12/02/2023 Plan Of Treatment Medication Medication Name Sig Start Date Stop Date Notes Clobetasol Propionate 0.05 % APPLY A THI N LAYER TOPICALLY TO AFFECTED AREA(S) TWICE DAILY for 14 Zolpidem Tartrate 10 MG 1 tablet at bedt dariana as needed Orally Once a day for 14 days 12/30/2023 Omeprazole 20 MG 2 tablets Orally Onc e a day for 90 days 08/08/2015 Next Appt Details Provider Name:Colby Correa , 03/06/2024 01:45:00 PM, [address] [place] [address], [address], [phone], Provider Name:Colby Correa , 03/27/2024 03:00:00 PM, [address] [place] [address], [address], [phone], Progress Notes * Princess BYRDDOB:[birth year] (68 yo F)Acc No.[id number]:12/30/2023 Patient:?Princess BYRD :1955???Age:68 Y???Sex:Female Address:[address] [place] [address], [place] [address] * Refills? Refill Omeprazole Tablet Delayed Release, 20 MG, Orally, 180, 2 tablets, Once a day, 90 days, Refills=3 Refill Zolpidem Tartrate Tablet, 10 MG, Orally, 14 Tablet, 1 tablet at bedtime as needed, Once a day, 14 days, Refills=0 Refill Clobetasol Propionate Ointment, 0.05 %, 30 Gram, APPLY A THIN LAYER TOPICALLY TO AFFECTED AREA(S) TWICE DAILY, 14, Refills=0 Subjective: * Chief Complaints: * ???Refill * Medical History:? * Surgical History:? * Hospitalization/Major Diagno stic Procedure:? * Medications:? * Allergies:?Morphine Sulfateh oneyno[Allergies Verified] Objective: * Vitals:? Past Vitals:* 11/21/2023 Temp:96.4F, HR:83/min, BP:Si tting Right Arm: 150/90mm Hg, Wt:255.4lbs, BMI:41.22Index, Ht:66in, Oxygen sat %:96% * 10/25/2023 Temp:98.8F, HR:93/min, BP:12 6/82mm Hg, Wt:254lbs, BMI:40.99Index, Ht: 66 in, Oxygen sat %:96% * 10/10/2023 BP:Sitting Right Arm: 130/70 mm Hg, Wt:257lbs, BMI:41.48Index, Ht:66in * Physical Examination:? Assessment: Plan: * Treatment: * Procedure Codes:? * true * Date:? Generated for Fouzia cooley/Olamide/Macrina on:?01/30/2024 08:28 AM EDT
--- OUTSIDE RECORDS SUMMARY | 2024-01-30 08:28 | XMS_ITS ---
Author Organization [facility] Address [address] [place] [phone] Care Team Providers Care Claims Auditor Name Role Phone [facility] Primary Care Provider REASON FOR VISIT 3m f/u DM Encounters Encounter Location Date Provider Diagnosis [facility] [address] [place] [address] [address] [address] [place] [phone] 01/24/2024 [facility] Plan Of Treatment Next Appt Details Provider Name:Colby Correa , 03/06/2024 01:45:00 PM, [address] [place] [address], [phone], Provider Name:Colby Correa , 03/27/2024 03:00:00 PM, [address] [place] [address], [phone], Progress Notes * Princess BYRDDOB:[birth year] (68 yo F)Acc No.[id number]:01/24/2024 Progress Notes Patient:?DATVianney Paredesya Provider:?[facility] MD :1955???Age:68 Y???Sex:Female D ate:01/24/2024 Address:[address] [place], [place] [phone] Subjective: * Chief Complaints: * ???1. 3m f/u DM. * Medical History:? Objective: * Vitals:? Past Vitals:* 11/21/2023 Temp:96.4F, HR:83/min, BP:Si tting Right Arm: 150/90mm Hg, Wt:255.4lbs, BMI:41.22Index, Ht:66in, Oxygen sat %:96% * 10/25/2023 Temp:98.8F, HR:93/min, BP:12 6/82mm Hg, Wt:254lbs, BMI:40.99Index, Ht: 66 in, Oxygen sat %:96% * 10/10/2023 BP:Sitting Right Arm: 130/70 mm Hg, Wt:257lbs, BMI:41.48Index, Ht:66in Assessment: Plan: * Treatment: * Images: Billing Information: * Visit Code:? * Procedure Codes:? * Electronic signature of Arlette Correa MD on 01/30/2024 at 08:28 AM EDT Sign off status: Pending * Provider:?[facility] MD Date:?01/23 Generated for Fouzia cooley/Olamide/Nathaliaitting on:?01/30/2024 08:28 AM EDT
--- OUTSIDE RECORDS SUMMARY | 2024-01-30 08:28 | XMS_ITS ---
Author Organization [facility] Address [address] [place] [phone] Care Team Providers Care Metalsmith Apprentice Name Role Phone [facility] Primary Care Provider [phone] Allergies Allergen (clinical drug ingredient) Drug/Non Drug Allergy documented on EMR Reaction Allergy Type Onset Date Status honey (uncoded) Unknown Allergy Acti ve morphine Morphine Sulfate Unknown Drug Allergy Active REASON FOR VISIT refill Medications Medication SIG (Take, Route, Frequency, Duration) Notes Start Date End Date Status HYDROcodone-Acetamin ophen 5-325 MG 1 tablet as needed Oral every 6 hrs for 21 days Partial Fill upon Patient Request 01/24/2024 02/14/2024 Active Encounters Encounter Location Date Provider Diagnosis [facility] [address] [place] [phone] 01/24/2024 [facility] Plan Of Treatment Medication Medication Name Sig Start Date Stop Date Notes HYDROcodone-Acetaminophe n 5-325 MG 1 tablet as needed Oral every 6 hrs for 21 days 01/24/2024 02/14/2024 Partial Fill upon Patient Request Next Appt Details Provider Name:Colby Correa , 03/06/2024 01:45:00 PM, [address] [place] [address], [phone], Provider Name:Colby Correa , 03/27/2024 03:00:00 PM, [address] [place] [address], [phone], Progress Notes * Landon CHEN:[birth year] (68 yo F)Acc No.[id number]:01/24/2024 Patient:?Princess CHEN :1955???Age:68 Y???Sex:Female Address:[address] [place] [address], [facility] * Refills? Refill HYDROcodone-Acetaminophen Tablet, 5-325 MG, Oral, 84 Tablet, 1 tablet as needed, every 6 hrs, 21 days, Refills=0 Subjective: * Chief Complaints: * ???Refill [...] * true * Date:? Generated for Fouzia cooley/Olamide/eTewasmitting on:?01/30/2024 08:28 AM EDT
--- OUTSIDE RECORDS SUMMARY | 2024-01-30 08:29 | XMS_ITS | Patient Health Record ---
Author Organization [facility] Address [address] [id number] Care Team Providers Care Marble Installation Helper Name Role Phone [facility]man Primary Care Provider Josette Galdamez Unavailable [phone] Allergies Allergen (clinical drug ingredient) Drug/Non Drug Allergy documented on EMR Reaction Allergy Type Onset Date Status honey (uncoded) Unknown Allergy Acti ve morphine Morphine Sulfate Unknown Drug Allergy Active Results Component Value Reference Range Notes Iron and TIBC-[id number] Reviewed date:11/22/2023 06:18:54 PM Interpretation: Performing Lab:[facility], [address] [facility], Phone - [phone], Director - Maryy Notes/Report: Iron Bind.Cap.(TIBC) 402 250-450 ug/dL UIBC 340 118-369 ug/dL Iron 62 27-139 ug/dL Iron Saturation 15 15-55 % Urinalysis, Complete-[id number] Reviewed date:11/22/2023 06:18:54 PM Interpretation: Performing Lab:[facility], [address] [facility], Phone - [phone], Director - Joy Notes/Report: Specific [place] 1.009 1.005-1.030 pH 6.0 5.0-7.5 Urine-Color Yellow [...] seen /lpf Bacteria None seen None seen/Few Ferritin-[id number] Reviewed date:11/22/2023 06:18:54 PM Interpretation: Performing Lab:[facility], [address] [place] [address], Phone - [phone], Director - Marquez Notes/Report: Ferritin 140 15-150 ng/mL CBC With Differential/Platel et-[id number] Reviewed date:11/22/2023 06:18:54 PM Interpretation: Performing Lab:[facility], [address] [place] [address], [place], Phone - [phone], Director - Marquez Notes/Report: WBC 11.4 3.4-10.8 [...] % Immature Grans (Abs) 0.0 0.0-0.1 x10E3/uL Reticulocyte Count-[id number] Reviewed date:11/22/2023 06:18:54 PM Interpretation: Performing Lab:[facility], [address] [place] [address], [place], Phone - [phone], Director - Marquez Notes/Report: Reticulocyte Count 3.5 0.6-2.6 % Vitamin D, 10-Nvuocuy-699272 Reviewed date:11/22/2023 06:18:54 PM Interpretation: Performing Lab:[facility], [address] [place] [address], Phone - [phone], Director - Marquez Notes/Report: Vitamin D, 25-Hydroxy 67.4 30.0-100.0 ng/mL Vitamin D deficiency has been defined by the [place] of [employer] and an Endocrine Society practice guideline as a level of serum 25-OH vitamin D less than 20 ng/mL (1,2). The Endocrine Society went on to further define vitamin D insufficiency as a level between 21 and 29 ng/mL (2). 1. IOM ([place] of [employer]). 2010. Dietary reference intakes for calcium and D. [place]: The National Academies Press. 2. Odell MF, Jaz NC, Vaishnavi HOOVER, et al. Evaluation, treatment, and prevention of vitamin D deficiency: an Endocrine Society clinical practice guideline. JCEM. 2010; 96(7):1911-30. Albumin/Creatinine Ratio,Uri ne-047399 Reviewed date:11/22/2023 06:18:54 PM Interpretation: Performing Lab:[facility] [place], [address] [place] [address], Phone - [phone], Director - Marquez Notes/Report: Creatinine, Urine 22.1 Not Estab. mg/dL Albumin, Urine 6.5 Not Estab. ug/mL Alb/Creat Ratio 29 0-29 mg/g creat Normal: 0 - 29 Moderately increased: 30 - 300 Severely increased: >300 B-Type Natriuretic Peptide-1 45206 Reviewed date:11/22/2023 06:18:54 PM Interpretation: Performing Lab:[facility] [place], [address] [place] [address], Phone - [phone], Director - Marquez Notes/Report: B-Type Natriuretic Peptide 37.3 0.0-100.0 pg/mL Siemens ADVIA Centau r XP methodology Comp. Metabolic Panel (14)-3 95668 Reviewed date:11/22/2023 06:18:55 PM Interpretation: Performing Lab:[facility] [place] [address] [place] [address], Phone - [phone], Director - Marquez Notes/Report: Glucose 292 70-99 mg/dL BUN 34 [...] 0-40 IU/L ALT (SGPT) 25 0-32 IU/L LP+Non-HDL Cholesterol-68530 5 Reviewed date:11/22/2023 06:18:55 PM Interpretation: Performing Lab:[facility], [address] [facility], Phone - [phone], Director - Marquez Notes/Report: Cholesterol, Total 123 100-199 mg/dL Triglycerides 184 0-149 mg/dL HDL Cholesterol 38 >39 mg/dL VLDL Cholesterol Chris 31 5-40 mg/dL LDL Chol Calc (NIH) 54 0-99 mg/dL Non-HDL Cholesterol 85 0-129 mg/dL URINARY MICROALBUMIN Reviewed date:06/21/2023 05:25:14 AM Interpretation: Performing Lab:Testing performed or reported by [facility], a [facility] of [facility], [address] [place] [address] Arturo Granda MD, Chemistry Laboratory Technician GRICELDA# [id number] Notes/Report: MICRO-ALBUMIN 25.0 (<20) MG/L The urine microalbumin test is designed to monitor renal function. When screening for Bence Rice proteinuria, urine electrophoresis is recommended. MALB/CREAT RATIO 100.0 (0-20) MG/GM URINE CREAT FOR MICRO ALBUMIN 25.0 RETICULOCYTE COUNT Reviewed date:06/21/2023 05:25:14 AM Interpretation: Performing Lab:Testing performed or reported by [facility], a Service of [address] [address] Arturo Granda MD, Chemistry Laboratory Technician LIBORIOTN# [id number] Notes/Report: RETIC % 2.3 (0.9-2.1) % RETICULOCYTE COUNT, CORRECTED 1.9 (0.9-2.1) % RETICULOCYTE PRODUCTION INDEX 1.9 (1.0-2.0) % PROBNP Reviewed date:06/22/2023 07:31:27 AM Interpretation: Performing Lab:Testing performed or reported by [facility], a Service of [address] [address] Arturo Granda MD, Chemistry Laboratory Technician LIBORIOTN# [id number] Notes/Report: PRO BNP 117 (1-125) PG/ML IRON & TIBC Reviewed date:06/21/2023 05:25:14 AM Interpretation: Performing Lab:Testing performed or reported by [facility], a Service of [address] [address] Arturo Granda MD, Chemistry Laboratory Technician [facility]# [id number] Notes/Report: IRON 32 (30-160) MCG/DL UNSATURATED IRON BINDING CAPAC 497 (110-370) MCG/DL EST T. IRON BIND CAPACITY 529 (140-530) MCG/DL % IRON SATURATION 6 (20-55) % FERRITIN Reviewed date:06/21/2023 05:42:22 AM Interpretation: Performing Lab:Testing performed or reported by [facility], a Service of [address] [address] Arturo Granda MD, Chemistry Laboratory Technician GRICELDA# [id number] Notes/Report: FERRITIN 18 (14-283) NG/ML COMPREHENSIVE METABOLIC PANE L Reviewed date:06/21/2023 05:25:14 AM Interpretation: Performing Lab:Testing performed or reported by [facility], a Service of [address] [address] Arturo Granda MD, Chemistry Laboratory Technician LIBORIOIA# [id number] Notes/Report: GLUCOSE 192 (70-99) MG/DL BUN 26 [...] Interpretation: Performing Lab:Testing performed or reported by [facility], a Service of [address] [address] Arturo Granda MD, Chemistry Laboratory Technician [facility]# [id number] Notes/Report: APPEAR/COLOR LIGHT YELLOW CLEAR SP. GRAVITY [...] Interpretation: Performing Lab:Testing performed or reported by [facility], a Service of [address] [address] Arturo Granda MD, Chemistry Laboratory Technician [facility]# [id number] Notes/Report: WBC 12.0 (4.0-11.0) K/MM3 RBC 4.55 [...] Interpretation: Performing Lab:Testing performed or reported by [facility], [facility], [address] [place] [address] Arturo Granda MD, Chemistry Laboratory Technician [place]# [id number] Notes/Report: 25OH VITAMIN D 62.1 (20-50) NG/ML Hemoglobin A1C Reviewed date:03/22/2023 05:47:38 PM Interpretation: Performing Lab: Notes/Report: [facility] ([facility] Lot: [id number] ANTI-HEPATITIS C W/RFLX HCV QNT Reviewed date:03/24/2023 05:16:54 PM Interpretation: Performing Lab:Testing performed or reported by [facility], [facility], [address] [place] [address] [place] [address] Arturo Granda MD, Chemistry Laboratory Technician GRICELDA# [id number] Notes/Report: ANTI-HEPATITIS C NEGATIVE (NEG) Reference range: Negative This test was performed on the [employer] immunoassay system. Hemoglobin A1C Reviewed date:11/22/2023 06:18:55 PM Interpretation: Performing Lab: Notes/Report: [facility] Lot: [id number] PDF Report Reviewed date:11/22/2023 06:18:55 PM Interpretation: Performing Lab:[facility] [place], [address] [place] [address], [place], Phone - [phone], Director - Marquez Notes/Report: LIPID PANEL W REFLEX TO DLDL Reviewed date:06/21/2023 05:25:14 AM Interpretation: Performing Lab:Testing performed or reported by [facility], [place] [address] Arturo Granda MD, Chemistry Laboratory Technician GRICELDA# [id number] Notes/Report: CHOLESTEROL, TOTAL 137 (<200) MG/DL TRIGLYCERIDES 222 (<150) MG/DL HDL CHOL 40 (>39) MG/DL LDL CHOLESTEROL, CALCULATED 53 (0-130) MG/DL NON HDL CHOLESTEROL (CALC) 97 (<160) MG/DL CHOLESTEROL/HDL RATIO (CALC) 3.4 (<5.0) Reference range for children have not been well established. Adult reference range is equal or less than 5 HEMOGLOBIN A1C Reviewed date:06/21/2023 05:25:14 AM Interpretation: Performing Lab:Testing performed or reported by [facility], a Service of [address] [address] Arturo Granda MD, Chemistry Laboratory Technician GRICELDA# [id number] Notes/Report: HEMOGLOBIN A1C 10.0 (4.0-5.6) % MONITORING: In known diabetic patients, hemoglobin A1c targets should be discussed with health care provider. DIAGNOSTIC USE: The [place] Diabetes Association (ADA) and the World Health [...] Research and Education Volume 43, Supplement 1 25OH VITAMIN D Reviewed date:03/24/2023 05:16:54 PM Interpretation: Performing Lab:Testing performed or reported by [facility], a Service of [address] [address] Arturo Granda MD, Chemistry Laboratory Technician CLIA# [id number] Notes/Report: 25OH VITAMIN D 59.6 (20-50) NG/ML COMPLETE CBC WITH DIFF Reviewed date:03/24/2023 05:16:54 PM Interpretation: Performing Lab:Testing performed or reported by [facility], [facility], [address] [place] [address] Arturo Granda MD, Chemistry Laboratory Technician [facility]# [id number] Notes/Report: WBC 8.9 (4.0-11.0) K/MM3 RBC 4.04 [...] Interpretation: Performing Lab:Testing performed or reported by [facility], [facility], [address] [place] [address] Arturo Granda MD, Chemistry Laboratory Technician [facility]# [id number] Notes/Report: GLUCOSE 198 (70-99) MG/DL BUN 20 [...] GFR from serum creatinine, age and sex. LIPID PANEL W REFLEX TO DLDL Reviewed date:03/24/2023 05:16:54 PM Interpretation: Performing Lab:Testing performed or reported by [facility], a [facility] of [facility], [address] [place] [address] Arturo Granda MD, Chemistry Laboratory Technician [facility]# [id number] Notes/Report: CHOLESTEROL, TOTAL 135 (<200) MG/DL TRIGLYCERIDES 246 (<150) MG/DL HDL CHOL 35 (>39) MG/DL LDL CHOLESTEROL, CALCULATED 51 (0-130) MG/DL NON HDL CHOLESTEROL (CALC) 100 (<160) MG/DL CHOLESTEROL/HDL RATIO (CALC) 3.9 (<5.0) Reference range for children have not been well established. Adult reference range is equal or less than 5 PROBNP Reviewed date:03/24/2023 05:16:54 PM Interpretation: Performing Lab:Testing performed or reported by [facility], a Service of [address] [address] Arturo rGanda MD, Chemistry Laboratory Technician [facility]# [id number] Notes/Report: PRO BNP 155 (1-125) PG/ML COMPLETE URINALYSIS Reviewed date:03/24/2023 05:16:54 PM Interpretation: Performing Lab:Testing performed or reported by [facility], a Service of [address] [address] Arturo Granda MD, Chemistry Laboratory Technician [facility]# [id number] Notes/Report: APPEAR/COLOR COLORLESS CLEAR SP. GRAVITY 1.005 [...] Interpretation: Performing Lab:Testing performed or reported by [facility], a Service of [address] [address] Arturo Granda MD, Chemistry Laboratory Technician [facility]# [id number] Notes/Report: MICRO-ALBUMIN 35.0 (<20) MG/L The urine microalbumin test is designed to monitor renal function. When screening for Bence Rice proteinuria, urine electrophoresis is recommended. MALB/CREAT RATIO 269.5 (0-20) MG/GM URINE CREAT FOR MICRO ALBUMIN 12.8 US Bladder Reviewed date:11/10/2023 05:56:15 AM Interpretation: [...] for further evaluation if clinically warranted. WSN: [id number] Ordering Physician: Colby Guzman Dictated By: Minesh Carrillo MD Bladder REASON: Urinary incontinence without sensory awareness. COMPARISON: CT Abdom en and Pelvis 03/23/2021. FINDINGS: Bladder morphology appears normal. No stone, mass, wall thickening or debris. Prevoid volume: 591. 8 cc Postvoid volume: 150 .8 cc Partially imaged uterus demonstrates possible endometrial thickening. IMPRESSION: Significant postvoid residual urinary bladder volume of 151 cc. Partially imaged uterus demonstrates possible endometrial thickening. Consider correlation for history of postmenopausal bleeding. Pelvic ultrasound may be obtained for further evaluation if clinically warranted. 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) Referral Organization [facility] QUINONES Referring Provider First Name Colby Referring Provider Last Name Sunny Referring Provider Speciality Internal M edicine Referred Provider Alo Wheeler Referred Provider Specialty Gastroentero logy General Notes Nara LOPEZ 08:59:22 AM > faxedJESSICA Brooke R 05/10/2023 02:33:01 PM > 07/07/2022 1:30 pm aaron douglass booked with elbert Referral Priority Routine Referral [...] MOUTH THREE TIMES DAILY for 90 Active Kerendia 10 MG 1 tablet Orally [...] a day for 90 days 08/08/2015 Active HYDROcodone-Acetamino phen 5-325 MG 1 tablet as needed Oral every 6 hrs for 21 days Partial Fill upon Patient Request 01/24/2024 02/14/2024 Active Clopidogrel Bisulfate 75 MG Take 1 tablet by mouth once daily for 90 Active Bumetanide 2 MG TAKE 1 TO 2 TABLETS BY MOUTH ONCE DAILY for 60 Active Vitamin D (Ergocalciferol) 1.25 MG (38932 UT) Take 1 capsule by mouth once a week for 84 Active Immunizations Vaccine Route Administration Date Status Comme nts *Influenza, High Dose Seasonal, Quadrivatent Unknown 06/20/2023 Refused patient refused *Influenza-Medicare-A S IM Intramuscular 04/26/2019 Administered *Prevnar 13 Unknown 03/03/2021 Refused *Prevnar 13 Unknown 03/15/2022 Refused *PREVNAR 20 Unknown 03/22/2023 Others Influenza Unknown 04/23/2016 Refused [id number] Afluria-Single IM Intramuscular 04/19/2018 Administered Influenza-Afluria (IIV4) [...] W/U Status Risk Notes Problem Postherpetic 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) 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) Active confirmed Problem Anemia due to chronic blood loss (220937105) 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 confirmed Problem Diabetic renal disease (783330003) 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) Active confirmed Problem Diabetic renal disease (508506210) Type 2 diabetes mellitus with diabetic chronic kidney disease (E11.22) Active confirmed Problem Polyneuropathy due to type 2 diabetes mellitus (532356179) Type 2 diabetes mellitus with diabetic polyneuropathy (E11.42) Active confirmed Problem Vitamin D deficiency (63161715) Vitamin D deficiency, unspecified (E55.9) Active confirmed Problem Morbid obesity (disorder) (726704572) Morbid (severe) obesity due to excess calories (E66.01) Active confirmed Problem Mixed hyperlipidemia (551806548) Mixed hyperlipidemia (E78.2) Active confirmed Problem Carpal tunnel syndrome (00439126) Carpal tunnel syndrome, unspecified upper limb (G56.00) Active confirmed Problem Carpal tunnel syndrome (07612584) Carpal tunnel syndrome, right upper limb (G56.01) Active confirmed Problem Carpal tunnel syndrome (40610197) Carpal tunnel syndrome, left upper limb (G56.02) Active confirmed Problem Polyneuropathy (35611049) Polyneuropathy in diseases classified elsewhere (G63) Active confirmed Problem Age-related nuclear cataract of right eye (315918231527381) Age-related nuclear cataract, right eye (H25.11) Active confirmed Problem Age-related nuclear cataract of left eye (422991463523308) Age-related nuclear cataract, left eye (H25.12) Active confirmed Problem Benign paroxysmal positional vertigo (829570855) Benign paroxysmal vertigo, unspecified ear (H81.10) Active confirmed Problem Hypertensive heart AND chronic kidney disease with congestive heart failure (94532409591791) Hypertensive heart and chronic kidney disease with heart failure and stage 1 through stage 4 chronic kidney disease, or unspecified chronic kidney disease (I13.0) Active confirmed Problem Angina (837828231) 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) Active confirmed Problem Sick sinus syndrome (02391757) Sick sinus syndrome (I49.5) Active confirmed Problem Chronic diastolic heart failure (620894433) Chronic diastolic (congestive) heart failure (I50.32) Active confirmed Problem Intermittent claudication of bilateral lower limbs co-occurrent and due to atherosclerosis (72143848642272868 ) Atherosclerosis of [place] arteries of extremities with intermittent claudication, bilateral legs (I70.213) Active confirmed Problem Chronic rhinitis (70959035) Chronic rhinitis (J31.0) Active confirmed Problem Gastroparesis (086012307) Gastroparesis (K31.84) Active confirmed Problem Sebaceous cyst (193441170) Sebaceous cyst (L72.3) Active confirmed Problem Right side sciatica (230224875865143) Sciatica, right side (M54.31) Active confirmed Problem Occipital neuralgia (76640923) Occipital neuralgia (M54.81) Active confirmed Problem Incontinence without sensory awareness (372203868) Incontinence without sensory awareness (N39.42) Active confirmed Problem Functional urinary incontinence (498735605) Functional urinary incontinence (R39.81) Active confirmed Problem Nonspecific tuberculin test reaction (630967811) Nonspecific reaction to tuberculin skin test without active tuberculosis (R76.11) Active confirmed Problem Long-term current use of insulin (634019621) half-way (current) use of insulin (Z79.4) Active confirmed Problem History of polyp of colon (045412624) Personal history of colonic polyps (Z86.010) Active confirmed Problem Cardiac pacemaker in situ (046957288) Presence of cardiac pacemaker (Z95.0) Active confirmed Problem Obstructive sleep apnea syndrome (disorder) (02936723) Obstructive sleep apnea (adult) (pediatric) (G47.33) Active confirmed Problem Chronic kidney disease stage 3A (disorder) (149542974) Chronic kidney disease, stage 3a (N18.31) Active confirmed Problem Body mass index 40+ - severely obese (678931179) Body mass index [BMI]40.0-44.9, adult (Z68.41) Active confirmed Problem Atherosclerotic heart disease of [place] coronary artery without angina pectoris (291269487785457) Atherosclerotic heart disease of [place] coronary artery without angina pectoris (I25.10) Inactive confirmed Vital Signs Heart Rate 83 /min 11/21/2023 Temperature 96.4 degrees Fahrenheit 11/21/2023 Oximetry 96 % 11/21/2023 Blood pressure diastolic 90 mm Hg 11/21/2023 Height 66 in 11/21/2023 Blood pressure systolic 150 mm Hg 11/21/2023 Weight 255.4 lbs 11/21/2023 BMI 41.22 kg/m2 11/21/2023 Encounters Encounter Location Date Provider Diagnosis Colby Guzman MD [address] [id number] 03/22/2023 Colby Guzman Encounter for genera l adult medical examination without abnormal findings Z00.00 ; Hypertensive heart and chronic kidney disease with heart failure and stage 1 through stage 4 chronic kidney disease, or unspecified chronic kidney disease I13.0 ; Type 2 diabetes mellitus with diabetic polyneuropathy E11.42 ; superintendent terminal (current) use of insulin Z79.4 ; Chronic kidney disease, stage 3a N18.31 ; Atherosclerotic heart disease of [place] coronary artery without angina pectoris I25.10 ; [...] other viral diseases Z11.59 Colby Guzman MD [address] [id number] 06/20/2023 Colby Guzman Hypertensive heart a nd chronic kidney disease with heart failure and stage 1 through stage 4 chronic kidney disease, or unspecified chronic kidney disease I13.0 ; Type 2 diabetes mellitus with diabetic polyneuropathy E11.42 ; superintendent terminal (current) use of insulin Z79.4 ; Chronic kidney disease, stage 3a N18.31 ; Atherosclerotic heart disease of [place] coronary artery without angina pectoris I25.10 ; [...] of patient refusal Z28.21 Colby Guzman MD [address] [id number] 09/28/2023 Colby Guzman Type 2 diabetes mellitus with diabetic polyneuropathy E11.42 ; half-way (current) use of insulin Z79.4 and Incontinence without sensory awareness N39.42 Colby Guzman MD [address] [id number] 10/06/2023 Colby Guzman MD [address] [id number] 10/10/2023 Colby Guzman Hypertensive heart a nd chronic kidney disease with heart failure and stage 1 through stage 4 chronic kidney disease, or unspecified chronic kidney disease I13.0 ; Type 2 diabetes mellitus with diabetic polyneuropathy E11.42 ; half-way (current) use of insulin Z79.4 ; Chronic kidney disease, stage 3a N18.31 ; Atherosclerotic heart disease of [place] coronary artery without angina pectoris I25.10 ; [...] cataract, right eye H25.11 Colby Guzman MD [address] [id number] 10/25/2023 Colby Guzman Type 2 diabetes mellitus with diabetic polyneuropathy E11.42 ; superintendent terminal (current) use of insulin Z79.4 and Incontinence without sensory awareness N39.42 Colby Guzman MD [address] [id number] 11/03/2023 Colby Guzman Hypertensive heart a nd chronic kidney disease with heart failure and stage 1 through stage 4 chronic kidney disease, or unspecified chronic kidney disease I13.0 ; superintendent terminal (current) use of insulin Z79.4 ; Chronic kidney disease, stage 3a N18.31 ; Atherosclerotic heart disease of [place] coronary artery without angina pectoris I25.10 ; [...] chronic kidney disease E11.22 Colby Guzman MD [address] [id number] 11/21/2023 Colby Guzman Hypertensive heart a nd chronic kidney disease with heart failure and stage 1 through stage 4 chronic kidney disease, or unspecified chronic kidney disease I13.0 ; Type 2 diabetes mellitus with diabetic chronic kidney disease E11.22 ; superintendent terminal (current) use of insulin Z79.4 ; Chronic kidney disease, stage 3a N18.31 ; Chronic diastolic (congestive) heart failure I50.32 ; Sick sinus syndrome I49.5 ; Presence of cardiac pacemaker Z95.0 ; Atherosclerotic heart disease of [place] coronary artery without angina pectoris I25.10 ; Body mass index [BMI]40.0-44.9, adult Z68.41 ; Morbid (severe) obesity due to excess calories E66.01 ; Polyneuropathy in diseases classified elsewhere G63 ; Mixed hyperlipidemia E78.2 ; Gastroparesis K31.84 ; 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 and Vitamin D deficiency, unspecified E55.9 Colby Guzman MD [address] [id number] 02/07/2023 Colby Guzman MD [address] [id number] 02/07/2023 Colby Guzman MD [address] [id number] 02/08/2023 Colby Guzman Functional urinary incontinence R39.81 Colby Guzman MD [address] [id number] 02/08/2023 Colby Guzman MD [address] [id number] 03/08/2023 Colby Guzman MD [address] [id number] 03/14/2023 Colby Guzman MD [address] [id number] 03/14/2023 Colby Guzman MD [address] [id number] 03/24/2023 Colby Guzman Anemia, unspecified D64.9 and 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 Colby Guzman MD [address] [id number] 04/05/2023 Colby Guzman MD [address] [id number] 04/05/2023 Colby Guzman MD [address] [id number] 04/06/2023 Colby Guzman MD PC [address] [place], [place] [id number] 04/08/2023 Colby Guzman MD [facility] [address] [place], [place] [id number] 04/13/2023 Cloby Guzman MD PC [address] [place], [place] [id number] 04/19/2023 Colby Guzman MD [facility] [address] [place], [place] [id number] 04/25/2023 Colby Guzman MD [facility] [address] [place], [place] [id number] 05/10/2023 Colby Guzman MD [facility] [address] [place], [place] [id number] 06/01/2023 Colby Guzman MD [facility] [address] [place], [place] [id number] 06/07/2023 Colby Guzman MD PC [address] [place], [place] [id number] 06/07/2023 Colby Guzman MD PC [address] [place], [place] [id number] 06/20/2023 Colby Guzman MD [facility] [address] [place], [place] [id number] 07/11/2023 Colby Guzman MD [facility] [address] [place], [place] [id number] 07/12/2023 Colby Guzman MD [facility] [address] [place], [place] [id number] 07/12/2023 Colby Guzman MD [facility] [address] [place], [place] [id number] 08/01/2023 Colby Guzman MD [facility] [address] [place], [place] [id number] 08/09/2023 Colby Guzman MD [facility] [address] [place], [place] [id number] 08/19/2023 Josette Guzman MD [facility] [address] [place], [place] [id number] 09/06/2023 Colby Guzman MD [facility] [address] [place], [place] [id number] 09/07/2023 Colby Guzman MD PC [address] [place] [id number] 10/03/2023 Colby Guzman MD [address] [place] [id number] 10/04/2023 Colby Guzman MD [address] [id number] 10/04/2023 Colby Guzman MD [address] [id number] 10/05/2023 Colby Guzman Type 2 diabetes mellitus with diabetic polyneuropathy E11.42 Colby Guzman MD [address] [id number] 10/06/2023 Colby Guzman Type 2 diabetes mellitus with diabetic polyneuropathy E11.42 Colby Guzman MD [address] [place] [id number] 10/28/2023 Colby Guzman MD [address] [id number] 11/04/2023 Colby Guzman MD [address] [id number] 11/08/2023 Colby Guzman MD [address] [id number] 11/23/2023 Colby Guzman MD [address] [id number] 12/02/2023 Colyb Guzman 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 Check routine labs. Healthcare proxy and MOLST form package given for review and completion 03/24/2023 Anemia, unspecified (ICD-10 - D64.9) 06/20/2023 Hypertensive heart and chronic kidney disease with heart failure and stage 1 through stage 4 chronic kidney disease, or unspecified chronic kidney disease (ICD-10 - I13.0) Stable at present. Continue current therapy 09/28/2023 Type 2 diabetes mellitus with diabetic polyneuropathy (ICD-10 - E11.42) Her A1C continues to be elevated at 9.4%. Recommend contiunous glucose monitor. Placed G7 in office. She is agreeable to see a dietitian as well. Follow up in 2 weeks. 09/28/2023 half-way (current) use of insulin (ICD-10 - Z79.4) Continues on insulin therapy.Will review G7 data in 2 weeks may need to adjust insulin based on data. 10/05/2023 Type 2 diabetes mellitus with diabetic polyneuropathy (ICD-10 - E11.42) 10/06/2023 Type 2 diabetes mellitus with diabetic polyneuropathy (ICD-10 - E11.42) 10/10/2023 Type 2 diabetes mellitus with diabetic [...] additional insulin based on guidance from her procurement buyer. The current Dexcom report was faxed to her procurement buyer as well. 10/10/2023 Hypertensive heart and chronic kidney disease [...] other issues and continue current medical therapy 10/25/2023 Type 2 diabetes mellitus with diabetic [...] herself. Follow up in one week. 10/25/2023 superintendent terminal (current) use of insulin (ICD-10 - Z79.4) Continues on insulin therapy. 11/03/2023 Hypertensive heart and chronic kidney disease with heart failure and stage 1 through stage 4 chronic kidney disease, or unspecified chronic kidney disease (ICD-10 - I13.0) Stable at present. Continue current therapy 11/03/2023 half-way (current) use of insulin (ICD-10 - Z79.4) Continues on insulin therapy as managed by endocrine 11/21/2023 Type 2 diabetes mellitus with diabetic chronic kidney disease (ICD-10 - E11.22) She has follow-up pending with endocrine tomorrow. She says she is unable to use a continuous glucose monitor. She knocks it off after 3 days. She is not able to keep it on for its full life span. 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 She has not gotten her US yet. She may have missed a call from [facility] to schedule this. Given the phone number to reach [facility] to schedule. 10/10/2023 half-way (current) use of insulin (ICD-10 - Z79.4) Continues on insulin therapy as managed by endocrine 09/28/2023 Incontinence without sensory awareness (ICD-10 - N39.42) she says she has bee n having incontinence since her D and C procedure in 2019. Plan for ultrasound for post void residual. 06/20/2023 Type 2 diabetes mellitus with diabetic [...] hands are all related complications of diabetes [id number]. None of these will get better until her diabetes is better managed. 06/20/2023 superintendent terminal (current) use of insulin (ICD-10 - Z79.4) Continues on insulin therapy as managed by endocrine 10/10/2023 Chronic kidney disease, stage 3a (ICD-10 - N18.31) Stable estimated GFR in the 60s to 70s. Continue control of comorbidity especially diabetes 11/03/2023 Atherosclerotic heart disease of [place] coronary artery without angina pectoris (ICD-10 - I25.10) Stable without any progressive symptoms of note. 11/21/2023 Chronic kidney disease, stage 3a (ICD-10 - N18.31) Her GFR is in the mi d 60s to 70s. Recommend continue control of comorbidity of hypertension diabetes. She would also benefit from use of finerenone to help reduce risk of progressive renal insufficiency 11/21/2023 Chronic diastolic (congestive) heart failure (ICD-10 - I50.32) Symptomatically stab le. Recheck labsSymptomatically stable. 11/03/2023 Chronic diastolic (congestive) heart failure (ICD-10 - I50.32) Symptomatically stab le. Recheck labs 10/10/2023 Atherosclerotic heart disease of [place] coronary artery without angina pectoris (ICD-10 - I25.10) Symptomatically stab le but need to control comorbidities of diabetes and hypertension and hyperlipidemia. 06/20/2023 Chronic kidney disease, stage 3a (ICD-10 - N18.31) Her GFR had improved into the 60s to 70s. Continue control comorbidity and reevaluate status 03/22/2023 half-way (current) use of insulin (ICD-10 - Z79.4) Continues on insulin therapy as managed by endocrine 03/22/2023 Chronic kidney disease, stage 3a (ICD-10 - N18.31) Her GFR had been in the 50s. Slightly better into the 60s now. Recheck status to verify adequate control and improvement 06/20/2023 Atherosclerotic heart disease of [place] coronary artery without angina pectoris (ICD-10 - I25.10) Stable without any progressive symptoms of note. 10/10/2023 Chronic diastolic (congestive) heart failure (ICD-10 - I50.32) Symptomatically stab le. Recheck labs 11/03/2023 Sick sinus syndrome (ICD-10 - I49.5) Stable with pacemake r placement 11/21/2023 Sick sinus syndrome (ICD-10 - I49.5) Stable with pacemake r placement 11/21/2023 Presence of cardiac pacemaker (ICD-10 - Z95.0) Stable and unchanged 11/03/2023 Presence of cardiac pacemaker (ICD-10 - Z95.0) Stable and unchanged 10/10/2023 Sick sinus syndrome (ICD-10 - I49.5) Stable with pacemake r placement 06/20/2023 Chronic diastolic (congestive) heart failure (ICD-10 - I50.32) Symptomatically stab le. Recheck labs 03/22/2023 Atherosclerotic heart disease of [place] coronary artery without angina pectoris (ICD-10 - I25.10) Stable without any progressive symptoms of note. 03/22/2023 Chronic diastolic (congestive) heart failure (ICD-10 - I50.32) Symptomatically stab le. Recheck labs 06/20/2023 Sick sinus syndrome (ICD-10 - I49.5) Stable with pacemake r placement 10/10/2023 Presence of cardiac pacemaker (ICD-10 - Z95.0) Stable and unchanged 11/03/2023 Body mass index [BMI]40.0-44.9, adult (ICD-10 - Z68.41) Encourage diet and exercise 11/21/2023 Atherosclerotic heart disease of [place] coronary artery without angina pectoris (ICD-10 - I25.10) She reports that she is doing okay without any symptoms of note. Continue control comorbidity of hypertension diabetes and hyperlipidemia 11/21/2023 Body mass index [BMI]40.0-44.9, adult (ICD-10 - Z68.41) Encourage diet and exercise 11/03/2023 Morbid (severe) obesity due to excess calories (ICD-10 - E66.01) Encourage diet and exercise and weight loss 10/10/2023 Body mass index [BMI]40.0-44.9, adult (ICD-10 - Z68.41) Encourage diet and exercise 06/20/2023 Presence of cardiac pacemaker (ICD-10 - Z95.0) Stable and unchanged 03/22/2023 Sick sinus syndrome (ICD-10 - I49.5) Stable with pacemake r placement 06/20/2023 Body mass index [BMI]40.0-44.9, adult (ICD-10 - Z68.41) Encourage diet and exercise 03/22/2023 Presence of cardiac pacemaker (ICD-10 - Z95.0) Stable and unchanged 10/10/2023 Morbid (severe) obesity due to excess calories (ICD-10 - E66.01) Encourage diet and exercise and weight loss 11/03/2023 Mixed hyperlipidemia (ICD-10 - E78.2) Check level to verif y adequate control 11/21/2023 Morbid (severe) obesity due to excess calories (ICD-10 - E66.01) Encourage diet and exercise and weight loss 11/03/2023 Gastroparesis (ICD-10 - K31.84) Still has ongoing issues. Continue to modify diet. Hopefully control of diabetes will also facilitate this. Hopefully use of CGM will facilitate control of diabetes 10/10/2023 Mixed hyperlipidemia (ICD-10 - E78.2) Check level to verif y adequate control 03/22/2023 Body mass index [BMI]40.0-44.9, adult (ICD-10 - Z68.41) Encourage diet and exercise 06/20/2023 Morbid (severe) obesity due to excess calories (ICD-10 - E66.01) Encourage diet and exercise and weight loss 11/21/2023 Polyneuropathy in diseases classified elsewhere (ICD-10 - G63) She still has a gait imbalance most likely due to her neuropathy. Recommend assistive device such as a cane 03/22/2023 Morbid (severe) obesity due to excess calories (ICD-10 - E66.01) Encourage diet and exercise and weight loss 06/20/2023 Mixed hyperlipidemia (ICD-10 - E78.2) Check level to verif y adequate control 10/10/2023 Gastroparesis (ICD-10 - K31.84) Seems to be stable a t this point in time. 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 There may be a small bowel chronic blood loss. Recommend iron therapy and recheck status 11/21/2023 Mixed hyperlipidemia (ICD-10 - E78.2) Recheck level to sindy estrellita adequate control of comorbidity. 11/03/2023 Vitamin D deficiency, unspecified (ICD-10 - E55.9) Can check level as adjunct evaluation for fall risk and possibly dementia 06/20/2023 Gastroparesis (ICD-10 - K31.84) Still has ongoing issues. Continue to modify diet. Hopefully control of diabetes will also facilitate this. 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 Recheck status to verify that there is no persistent iron deficiency 03/22/2023 Mixed hyperlipidemia (ICD-10 - E78.2) Check level to verif y adequate control 11/21/2023 Gastroparesis (ICD-10 - K31.84) She still has occasional discomfort. At the present time will need to control diabetes better to help minimize progression 03/22/2023 Gastroparesis (ICD-10 - K31.84) Continues to have ongoing issues. Currently stable. Recommend frequent small meals. 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 There may be a small bowel chronic blood loss. 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 Recheck status to verify that there is no further loss of blood identified 10/10/2023 Vitamin D deficiency, unspecified (ICD-10 - E55.9) Can check level as adjunct evaluation for fall risk and possibly dementia 10/10/2023 Age-related nuclear cataract, right eye (ICD-10 [...] diabetic chronic kidney disease (ICD-10 - E11.22) 11/21/2023 Vitamin D deficiency, unspecified (ICD-10 - E55.9) Check level to verif y that there is no insufficiency 06/20/2023 Vitamin D deficiency, unspecified (ICD-10 - [...] hepatitis C as is the general recommendation 03/22/2023 Other This note was created with voice dictation recognition software and may contain errors of grammar and syntax. Also labs were reviewed with patient. 06/20/2023 Other This note was created with voice dictation recognition software and may contain errors of grammar and syntax. Also labs were reviewed with patient. 10/10/2023 Other This note was created with [...] patient. 08/19/2023 Other last filled, per [facility]: [id number] Acetamin 5-325 Mg56 tabs for 14 days 12/30/2023 Other last filled per [facility]: 12/02/2023 Plan Of Treatment Pending Test Test Name Order Date Ultrasound : Carotid Doppler Bilateral 0 03/13/2018 Exercise Stress Nuclear Test 03/03/2021 25OH VITAMIN D 03/15/2022 25OH VITAMIN D 03/03/2021 25OH VITAMIN D 07/19/2022 25OH VITAMIN D 12/02/2021 COMPLETE CBC WITH DIFF 12/02/2021 COMPLETE CBC WITH DIFF 07/19/2022 COMPLETE CBC WITH DIFF 03/24/2023 COMPLETE CBC WITH DIFF 03/03/2021 COMPLETE CBC WITH DIFF 03/15/2022 COMPLETE URINALYSIS 03/15/2022 COMPLETE URINALYSIS 03/03/2021 COMPLETE URINALYSIS 12/02/2021 COMPLETE URINALYSIS 07/19/2022 COMPREHENSIVE METABOLIC PANEL 12/02/2021 COMPREHENSIVE METABOLIC PANEL 07/19/2022 COMPREHENSIVE METABOLIC PANEL 03/03/2021 COMPREHENSIVE METABOLIC PANEL 03/15/2022 FERRITIN 12/02/2021 FERRITIN 03/24/2023 FOLIC ACID 12/02/2021 HEMOGLOBIN A1C 07/19/2022 IMMUNOFIXATION SERUM 12/02/2021 IRON & TIBC 12/02/2021 IRON & TIBC 03/24/2023 LIPID PANEL W REFLEX TO DLDL 07/19/2022 LIPID PANEL W REFLEX TO DLDL 12/02/2021 LIPID PANEL W REFLEX TO DLDL 03/15/2022 LIPID PANEL W REFLEX TO DLDL 03/03/2021 PROBNP 03/03/2021 PROBNP 12/02/2021 PROBNP 07/19/2022 RETICULOCYTE COUNT 03/24/2023 RETICULOCYTE COUNT 12/02/2021 URINARY MICROALBUMIN 07/19/2022 URINARY MICROALBUMIN 12/02/2021 URINARY MICROALBUMIN 03/03/2021 VITAMIN B12 12/02/2021 FOLATE 01/11/2019 FREESTYLE ESTELITA PRO 06/21/2017 CELIAC DISEASE COMPREHENSIVE 03/24/2023 Toñito Dexa Axial Skeleton 03/03/2021 CR Upper GI Small Bowel Series 2019 Novel Coronavirus, UMA 03/03/2021 2019 Novel Coronavirus, UMA 06/02/2021 Hemoglobin A1C 10/10/2023 Iron and TIBC-[id number] 10/10/2023 Urinalysis, Complete-[id number] 10/10/2023 Ferritin-238637 10/10/2023 CBC With Differential/Platelet-[id number] Reticulocyte Count-[id number] 10/10/2023 Vitamin D, 45-Bhwjaeg-259635 10/10/2023 Albumin/Creatinine Ratio,Urine-150633 B-Type Natriuretic Peptide-[id number] 2023 Comp. Metabolic Panel [id number] 2023 LP+Non-HDL Cholesterol-[id number] 10/10/2023 Future Test Test Name Order Date Comp. Metabolic Panel [id number] 2023 Next Appt Details Provider Name:Colby Guzman , 03/06/2024 01:45:00 PM, [address] [place] [address], [address], [id number], Provider Name:Colby Guzman , 03/27/2024 03:00:00 PM, [address] [place] [address], [place] [id number], [place], [place], [id number], Insurance Providers Payer Name Payer Address Payer Phone Subscriber Number Group Number Insured Name Patient Relationship to Insured Coverage Start Date Coverage End Date [place] [id number] [address] [address] [place] [phone] [facility] [id number] Princess Chen Self - patient is the insured Medical (General) History Medical History History ICD Code Diabetic retinopathy-laser treatment Type 2 diabetes mellitus with diabetic p olyneuropathy E11.42 Type 2 diabetes mellitus with diabetic n ephropathy E11.21 Chronic diastolic (congestive) heart [place] I50.32 Atherosclerotic heart diseas e of [place] coronary artery without angina pectoris I25.10 Presence [...] Hysteroscopy and Fractional D and C 07/05 Hospitalization History Reason Date(Month/Year)
[2024-01-30] MEDS: Tetracaine HCl/PF 0.5% Oph Sol 4 ML DROPS 1 DROP EYE-RIGHT (10:01)
[2024-01-30] MEDS: Cyclopentolate 1 % Ophth Sol 2 ML DRPBTL 1 DROP EYE-RIGHT ×3 (10:02→10:18)
[2024-01-30] MEDS: Tropicamide 1 % Ophth Sol 3 ML BTL 1 DROP EYE-RIGHT ×3 (10:04→10:20)
[2024-01-30] MEDS: Ketorolac Tromethamine 0.5% Op 10 ML DROPS 1 DROP EYE-RIGHT ×3 (10:06→10:22)
[2024-01-30] MEDS: Phenylephrine HCL 2.5% Oph SoL 2 ML BOTTLE 1 DROP EYE-RIGHT ×3 (10:08→10:24)
[2024-01-30] MEDS: Lactated Ringers 500 ML 50 ML IV (10:30)
[2024-01-30 10:31] VITALS: BP 164/62; PULSE 76; RESP 16; TEMP 35.8; O2SAT 95
[2024-01-30 10:40] LABS: Glucose, Whole Blood 183 mg/dL (60-115)
--- NOTE | 2024-01-30 11:08 | P.PCNO_ITS ---
Ophthalmology Procedure Procedure Date of Service: 01/30/24 Ophthalmology Viscoelastic: Healon Duet Dual Pack Pro Ophthalmology Lenses: IOL Acrysof MP - [id number] (20.5) Procedure Notes: PREOPERATIVE DIAGNOSIS: Decreased visual acuity right eye secondary to cataract POSTOPERATIVE DIAGNOSIS: Same PROCEDURE: Right cataract extraction with intraocular lens insertion SURGEON: Eric Cassidy M.D. ANESTHESIA: Topical/MAC ESTIMATED BLOOD LOSS: None COMPLICATIONS: None After obtaining informed consent, the patient was brought to the operating room suite and placed in the supine position. After adequate sedation per anesthesia, topical drops of Tetracaine were given to the right eye. The eye was then prepped and draped in the usual sterile fashion. The operating room microscope was then positioned over the operative eye and a lid speculum placed. A paracentesis was created. Viscoelastic was then instilled into the anterior chamber. A three plane incision was then created temporally, utilizing a 2.85 mm keratome. Capsulotomy forceps were then utilized to create a circular tear capsulotomy. Hydrodissection and hydrodelineation were carried out until adequate mobilization of the nucleus occurred. Phacoemulsification was then utilized to remove the dense central nu cleus followed by removal of the cortical material utilizing the automated aspiration irrigation unit. Viscoelastic was instilled into the posterior capsular bag followed by placement of a posterior chamber intraocular lens without difficulty. The residual Viscoelastic was then removed utilizing the automated IA machine. The wound was checked and found to be watertight. The patient tolerated the procedure well and the lid speculum was removed. Intracameral injection of Vigamox 0.1 mL followed by a subtenon injection of Kenalog-40 0.2 mL were administered. The patient will be seen in the a.m.
--- NOTE | 2024-01-30 11:08 | MHC.SHP ---
Pre-Procedural Eval Section A - 24 Hr Update-Section A only Date of Service: 01/30/24 The patient is an INPATIENT: No Changes since office visit: No Cold of Flu in the past 2 weeks, No New Medical Problems, No Changes in Medication and No Patient answered all questions The patient has been examined within 24 hours of the surgical procedure. The History & Physical has been completed within 30 days and I have reviewed it.: Yes Section B - Complete if H&P > 30 days Chief Complaint: Age-related nuclear cataract, right eye Allergies: Allergies Allergy/AdvReac Type Severity Reaction Status Date / Time morphine Allergy Intermediate Gastrointestinal Verified 01/30/24 10:47 Upset/nausea Plan Diagnosis/Plan: Unchanged I have reviewed the history and physical and performed a pertinent physical examination on my patient. No changes have occurred unless specified. Time Spent With Patient Time: Total time managing care of this patient today ____ minutes.
[2024-01-30 11:36] VITALS: BP 186/71; PULSE 74; RESP 18; TEMP 36.6; O2SAT 97
== END 2024-01-30 12:00 | disposition home or self-care (01) ==
PROVIDERS: PCP Internal Medicine; Visit Provider Ophthalmology
PROC: (CPT 66985; principal; 2024-01-30 11:30)
DX: H25.11 Age-related nuclear cataract, right eye (principal); H52.4 Presbyopia; E10.3553 Type 1 diabetes mellitus with stable proliferative diabetic retinopathy, bilateral; H18.413 Arcus senilis, bilateral; I10 Essential (primary) hypertension; E78.00 Pure hypercholesterolemia, unspecified; G47.33 Obstructive sleep apnea (adult) (pediatric); I25.10 Atherosclerotic heart disease of native coronary artery without angina pectoris; Z95.5 Presence of coronary angioplasty implant and graft; Z95.0 Presence of cardiac pacemaker; Z79.4 Long term (current) use of insulin; Z79.82 Long term (current) use of aspirin; Z79.899 Other long term (current) drug therapy; Z88.5 Allergy status to narcotic agent
CPT/HCPCS: 66984; 82947; J2250; J3301; V2630